=== PATIENT | male | born 1965 | race Caucasian/White ===

== ENCOUNTER 2016-05-08 09:00 | Outpatient (CLI) | payer BC ==
[~2016-05-08] VITALS: Ht 172.7 cm; Wt 114.1 kg
--- NOTE | ~2016-05-08 | HEMODYNAMI ---
PATIENT:ANICETO MOON MEDICAL RECORD: [id number] : 67 LOCATION:[facility] ADMISSION DATE: 05/08/16 Generatedon:05/08/201611:59 Patient name: ANICETO MOON Patient #: [id number] SSN: : 1965 Date of study: 05/08/2016 Page: Of Hemodynamic Procedure Report Patient Data Patient Demographics Procedure consent was obtained First Name: ANICETO Gender: Male Last Name: SARAI : 1965 Middle Initial: SOLEDAD Age: 50 year(s) Patient #: [id number] Race: Additional ID: [id number] Contact details Address: [address] [place] [address] State: [place] City: [place] Zip code: [address] Past Medical History Allergies: No known allergies Admission Admission Data Admission Date: 05/08/2016 Admission Time: 9:00 Height (in.): 66 BSA: 2.23 (m2) Height (cm.): 167.64 BMI: 41.48 (kg/m2) Weight (lbs.): 257 Weight (kg.): 116.57 Lab Results Lab Result Date: 05/08/2016 Lab Result Time: 0:00 Biochemistry Name Units Result Min Max BUN mg/dl 26 --(----)-* 7 18 Creatinine mg/dl 1.2 --(---*)-- 0.6 1.3 CBC Name Units Result Min Max Hemoglobin g/dl 15.5 --(-*--)-- 13.5 17.5 Procedure Procedure Types Cath Procedure Diagnostic Procedure C [facility] w/Coronaries PCI Procedure Coronary Stent Initial Coronary Stent Additional Miscellaneous Procedures Moderate Sedation up to 30 minutes Procedure Description Procedure Date Procedure Date: 05/08/2016 Procedure Start Time: 11:38 Procedure End Time: 11:57 Procedure Staff Name Function Robert Chappell MD Performing Physician Simi Vu RN Nurse Rasta Bowens RT Monitor Wilber Torres RT Scrub Procedure Data Cath Procedure Fluoroscopy Diagnostic fluoroscopy Total fluoroscopy Time: 5.9 time: 5.9 min min Diagnostic fluoroscopy Total fluoroscopy dose: dose: 1108 mGy 1108 mGy Contrast Material Contrast Material Type Amount (ml) Isovue 300 127 Entry Location Entry Primary Successful Side Size Upsize Upsize Entry Closure Succes sful Closure Location (Fr) 1 (Fr) 2 (Fr) Remarks Device Remarks Femoral Right 5 Fr 6 Fr Exoseal artery Short Diagnostic catheters Device Type Used For End Catheter Placement Cordis 5Fr Pigtail LV Angiography Catheter (MP) Cordis 5Fr JL 4.0 Left Coronary Catheter (MP) Angiography Cordis 5Fr 3DRC Catheter Right Coronary (MP) Angiography Procedure Complications No complications Procedure Medications Medication Administration Route Dosage Oxygen NC 2 l/min Heparin Flush Bag added to field 2 bags (1000units/500ml NS) Lidocaine 2% added to field 20 Versed I.V. 1 mg Fentanyl I.V. 50 mcg Versed I.V. 1 mg Fentanyl I.V. 50 mcg Versed I.V. 1 mg Fentanyl I.V. 50 mcg Versed I.V. 1 mg Fentanyl I.V. 50 mcg Heparin Bolus I.V. 4000 units Hemodynamics Rest BSA: 2.23 (m2) HGB: 15.5 (g/dl) O2 Consumption: Estimated: 264.02 (ml/min) O2 Co nsumption indexed: Estimated:118.39 (ml/min/m) Heart Rate: 66 (bpm) Snapshots Pre Cath Intra NCS Post Cath Vital Signs Time Heart Resp SPO2 etCO2 [id number] NIBP (mmHg) Rhythm Pain Sedation Rate (ipm) (%) (mmHg) (mmHg) Status Level (bpm) 11:16:38 67 16 97 0 0 144/78(99) NSR 0 (11) 10(A) , No pain 11:20:54 68 15 99 0 0 125/75(93) NSR 0 (11) 10(A) , No pain 11:25:08 63 16 96 0 0 134/77(92) NSR 0 (11) 10(A) , No pain 11:29:26 56 17 95 0 0 148/75(99) NSR 0 (11) 10(A) , No pain 11:33:52 57 16 94 0 0 127/68(100) NSR 0 (11) 10(A) , No pain 11:38:04 57 16 98 0 0 121/81(96) NSR 0 (11) 10(A) , No pain 11:42:18 60 15 95 0 0 134/70(96) NSR 0 (11) 9(A) , No pain 11:46:30 65 16 95 0 0 138/79(115) NSR 0 (11) 9(A) , No pain 11:50:40 70 16 96 0 0 131/87(103) NSR 0 (11) 9(A) , No pain 11:54:52 79 16 97 0 0 127/88(115) NSR 0 (11) 9(A) , No pain 11:56:36 67 16 98 0 0 135/75(100) NSR 0 (11) 9(A) , No pain Medications Time Medication Route Dose Verified Delivered Reason Notes Effectiveness by by 11:18:52 Oxygen NC 2 Robert Simi Per physician l/min Ta Vu RN 11:19:02 Heparin Flush added 2 Robertniels Chanelrey used for Bag to bags Ta Chappell MD procedure (1000units/500ml field NS) 11:19:10 Lidocaine 2% added 20ml Robert Robert for to vial Ta Chappell MD antiplatelet field therapy 11:31:41 Versed I.V. 1 mg Robert Simi for sedation Ta Vu RN 11:31:49 Fentanyl I.V. 50 Robert Simi for sedation mcg Ta Vu RN 11:33:52 Versed I.V. 1 mg Robert Simi for sedation Ta Vu RN 11:33:55 Fentanyl I.V. 50 Robert Simi for sedation mcg Ta Vu RN 11:36:03 Versed I.V. 1 mg Robert Simi for sedation Ta Vu RN 11:36:06 Fentanyl I.V. 50 Robert Simi for sedation mcg Ta Vu RN 11:39:16 Versed I.V. 1 mg Robert Simi for sedation Ta Vu RN 11:39:22 Fentanyl I.V. 50 Robert Simi for sedation mcg Ta Vu RN 11:49:57 Heparin Bolus I.V. 4000 Robert Simi for dose units Ta Vu RN anticoagulation verified [facility] dr chappell Procedure Log Time Note 10:55:07 Simi Vu RN sent for patient. Start room use. 11:03:08 Time tracking: Regular hours 11:03:13 Plan of Care:Hemodynamics will remain stable., Cardiac rhythm will remain stable., Comfort level will be maintained., Respiratory function will remain adequate., Patient/ family verbilizes understanding of procedure., Procedure tolerated without complication., Recovers from procedure without complications.. 11:10:51 Patient received from Pre/Post Procedure Room to CCL 1 Alert and oriented. Tansferred to table in Supine position. 11:10:52 Warm blankets applied, and marcelino hugger turned on for patient comfort. 11:10:53 Correct patient and procedure confirmed by team. 11:10:54 Signed procedure consent form obtained from patient. 11:10:54 ECG and BP/O2 sat monitors applied to patient. 11:15:32 Vital chart was started 11:15:33 Baseline sample Acquired. 11:15:37 Rhythm: sinus rhythm 11:15:38 Full Disclosure recording started 11:18:52 Oxygen 2 l/min NC was given by Simi Vu RN; Per physician; 11:19:02 Heparin Flush Bag (1000units/500ml NS) 2 bags added to field was given by Robert Chappell MD; used for procedure; 11:19:10 Lidocaine 2% 20ml vial added to field was given by Robert Chappell MD; for antiplatelet therapy; 11:23:20 H&P Date Dictated: 05/06/2016 Within 30 days and on chart., H&P Addendum completed by physician on day of procedure. (MUST COMPLETE FOR ALL OUTPATIENTS). 11:23:21 Pre-procedure instructions explained to patient. 11:23:22 Pre-op teaching completed and patient verbalized understanding. 11:23:26 Family in patients room. 11:23:28 Patient NPO since Midnight. 11:23:35 Patient allergic to No known allergies 11:23:37 Is the patient allergic to Iodine/contrast media? No. 11:25:14 Is patient on blood thinner?Yes 11:25:20 ACC The patient was administered the following blood thiners within the last 24 hours: ACCPlavix 11:25:26 Patient diabetic? Yes. 11:25:28 If diabetic: On Metformin? Yes 11:25:36 If on Metformin: Last Dose? 05/07/2016 11:25:38 ----Pre-sedation anethsthesia assessment.---- 11:26:11 Previous problem with sedation/anesthesia? No ? 11:26:12 Snore? Yes 11:26:14 Sleep apnea? Yes 11:26:15 Deviated septum? No 11:26:17 Opens mouth fully? Yes 11:26:18 Sticks out tongue? Yes 11:26:21 Airway obstruction? No ? 11:26:23 Dentures? No ? 11:26:28 Pre procedure: right dorsailis pedis pulse 1+ Palpable, but thready & weak; easily obliterated 11:26:30 Patient pain scale 0/10 ?. 11:26:35 IV patent on arrival in left antecubital with 0.9% NaCl at 10ml/hr. 11:31:00 Lab Result : BUN 26 mg/dl 11:31:00 Lab Result : Hemoglobin 15.5 g/dl 11:31:00 Lab Result : Creatinine 1.2 mg/dl 11:31:03 Lab results completed and on chart. 11:31:08 Right groin area was prepped with chlora-prep and draped in sterile fashion 11:31:10 Alarms reviewed by R. N. 11:31:10 Sharps counted by scrub and verified by R.N. 11:31:34 --------ALL STOP TIME OUT------ 11:31:34 Final Timeout: patient, procedure, and site verified with staff and physician. All members of the team are in agreement. 11:31:36 Right groin site verified by team. 11:31:41 Versed 1 mg I.V. was given by Simi Vu RN; for sedation; 11:31:42 Physical assessment completed. ASA score P 2 - A patient with mild systemic disease as per Robert Chappell MD. 11:31:47 Sedation plan: IV Moderate Sedation Versed, Fentanyl 11:31:49 Fentanyl 50 mcg I.V. was given by Simi Vu RN; for sedation; 11:31:52 Use device set Femoral Dx 11:31:53 Acist Syringe opened to sterile field. 11:31:53 Bag Decanter opened to sterile field. 11:31:53 Medline Cath Pack opened to sterile field. 11:31:54 Terumo 5Fr Wanchese Sheath opened to sterile field. 11:31:55 St Reza 260cm J .035 wire opened to sterile field. 11:31:56 Acist Hand Control opened to sterile field. 11:31:56 Acist Manifold opened to sterile field. 11:31:57 Diagnostic Infinity 5Fr Multipack catheter opened to sterile field. 11:31:57 Tegaderm 4 x 4 opened to sterile field. 11:33:52 Versed 1 mg I.V. was given by Simi Vu RN; for sedation; 11:33:55 Fentanyl 50 mcg I.V. was given by Simi Vu RN; for sedation; 11:33:55 Patient Height : 66 inches 11:34:00 Patient Weight : 257 lbs 11:34:50 Zero performed for pressure channel P1 11:36:03 Versed 1 mg I.V. was given by Simi Vu RN; for sedation; 11:36:06 Fentanyl 50 mcg I.V. was given by Simi Vu RN; for sedation; 11:37:53 Procedure started. 11:38:21 Local anesthetic to right femoral artery with Lidocaine 2% by Robert Chappell MD.INITIAL ACCESS ONLY 11:38:28 A 5 Fr sheath was inserted into the Right Femoral artery 11:39:16 Versed 1 mg I.V. was given by Simi Vu RN; for sedation; 11:39:22 Fentanyl 50 mcg I.V. was given by Simi Vu RN; for sedation; 11:39:25 A Cordis 5Fr Pigtail Catheter (MP) was advanced over the wire and used for LV Angiography. 11:39:30 LV angiography performed. 11:39:31 LV gram done using KWOK 11:39:35 Injector settings: Ml/sec: 10, Volume: 20, 11:40:32 EF : 60 % 11:40:33 Catheter removed. 11:40:39 A Cordis 5Fr JL 4.0 Catheter (MP) was advanced over the wire and used for Left Coronary Angiography. 11:40:42 LCA angiography performed. 11:41:23 Catheter removed. 11:41:28 A Cordis 5Fr 3DRC Catheter (MP) was advanced over the wire and used for Right Coronary Angiography. 11:41:31 RCA angiography performed. 11:42:18 Catheter removed. 11:42:24 Sheath upsized to a 6 Fr Short. 11:43:34 6 Fr XBLAD 4 guide catheter was inserted over the wire 11:43:45 Terumo 6Fr Wanchese Sheath opened to sterile field. 11:43:45 Cooney Whisper J 300cm 0.014 guide wire opened to sterile field. 11:43:45 HEXIO BasixCompak Inflation Kit opened to sterile field. 11:43:46 Jumpido [place] IVUS Catheter opened to sterile field. 11:43:46 Cordis 6FR XBLAD 4.0 guide catheter opened to sterile field. 11:43:50 WHISPER wire advanced. 11:43:53 FFR/IVUS 11:43:54 IVUS catheter advanced over wire. 11:43:55 IVUS pass to Circ lesion performed. 11:48:05 IVUS catheter removed over wire. 11:48:17 ACC PCI Site: pCirc has 67% stenosis. 11:48:20 ACC Pre-intervention MARISELA Flow is 3. 11:49:40 ACC PCI Site: OM1 has 80% stenosis. 11:49:57 Heparin Bolus 4000 units I.V. was given by Simi Vu RN; for anticoagulation; dose verified [facility] dr chappell 11:51:24 Inflation Number: 1 A Medtronic Resolute 2.25 X 14 stent was prepped and advanced across the 1st Ob Rhonda. The stent was deployed at 15 LUCAS for 0:11 (min:sec). 11:51:47 Inflation number: 2 The stent balloon was then re-inflated across the 1st Ob Rhonda to 13 LUCAS for 0:10 (min:sec). 11:51:59 Stent catheter was removed intact over wire. 11:54:05 Inflation Number: 1 A Medtronic Resolute 3.0 X 9 stent was prepped and advanced across the Prox CX. The stent was deployed at 13 LUCAS for 0:12 (min:sec). 11:54:14 Stent catheter was removed intact over wire. 11:54:14 Wire removed. 11:54:15 Guide catheter removed. 11:54:16 ACC Post-intervention MARISELA Flow is 3. 11:54:22 Contrast amount:Isovue 300 127ml. 11:54:53 Sheath removed intact; hemostasis achieved with Exoseal to the Right Femoral artery. 11:55:01 Cordis 6Fr Exoseal opened to sterile field. 11:55:03 Procedure ended.(Physican Out) 11:56:07 Fluoroscopy time 05.90 minutes. 11:56:14 Flurop Dose total: 1108 11:56:14 Fluoroscopy dose: 1108 mGy 11:56:16 Sharps counted by scrub and verified by R.N. 11:56:17 Insertion/operative site no bleeding no hematoma. 11:56:20 Post-op/insertion site Right Femoral artery dressed using a 4 x 4 and Tegaderm. 11:56:37 Post right femoral artery:stable 11:56:44 Post Procedure Pulses reassessed and unchanged 11:56:46 Post procedure: right dorsailis pedis pulse 1+ Palpable, but thready & weak; easily obliterated. 11:56:49 Post procedure rhythm: sinus rhythm 11:56:51 Post procedure instruction explained to patient.Patient verbalizes understanding. 11:57:09 Procedure type changed to Cath procedure, Diagnostic procedure, LHC, LHC w/Coronaries, PCI procedure, Coronary Stent Initial, Coronary Stent Additional, Miscellaneous Procedures, Moderate Sedation up to 30 minutes 11:57:20 Procedure and supply charges have been captured, reviewed, submitted and are correct. 11:57:47 Procedure Complication : No complications 11:57:50 Vital chart was stopped 11:57:50 See physician's report for complete and final results. 11:57:54 Report given to Pre/Post Procedure Room. 11:57:57 Patient transfered to Pre/Post Procedure Room with Stretcher. 11:57:59 Procedure ended. 11:57:59 Full Disclosure recording stopped 11:58:05 ACC-PCI Only Patient was given prescriptions, or instructed by Robert Chappell MD to start/continue the following medications upon discharge: Plavix 11:58:06 End room use (Document Last) Intervention Summary Intervention Notes Time ActionType Lesion and Equipment Action# Pressure Duration Attributes Used 11:51:24 Place stent [address]st Ob [facility] Medtronic 1 15 00:11 Resolute 2.25 X 14 stent 11:51:47 Reinflate 1st Ob Rhonda Medtronic 2 13 00:10 stent Resolute balloon 2.25 X 14 stent 11:54:05 Place stent Prox CX Medtronic 1 13 00:12 Resolute 3.0 X 9 stent Device Usage Item Name Manufacture Quantity Catalog Hospital Part Current Minimal Lot# / Number Charge Number Stock Stock Serial# Code Acist Acist 1 42067 701313 055927 849519 20 Syringe Medical Systems Inc Bag Microtek 1 2002S 038342 80696 191961 5 Comm[employer]ve [employer] Inc. Medline Cardinal 1 [id number] 005013 17957 153769 5 Cath Pack Health Terumo 5Fr Terumo 1 [id number] 681683 668075 477555 [address] Reza 1 474524 267745 844617 371115 30 260cm J .035 wire Acist Hand Acist 1 91403 598302 001447 210428 5 [employer] Inc Acist Acist 1 51570 866815 458361 898651 5 [employer] Inc Diagnostic Cardinal 1 [id number] 623732 75945 085672 30 Infinity Health 5Fr Multipack catheter Tegaderm 4 3M 1 1626W 272125 340298 935173 5 x 4 Cordis 5Fr Cardinal 1 761777 5 Pigtail Health Catheter (MP) Cordis 5Fr Cardinal 1 189493 5 JL 4.0 Health Catheter (MP) Cordis 5Fr Cardinal 1 912994 5 3DRC Health Catheter (MP) Terumo 6Fr Terumo 1 SGR800 134854 775744 445213 40 Wanchese Sheath Cooney Cooney 1 [id number] 919665 404599 077359 5 Whisper J Vascular 300cm 0.014 guide wire Merit Merit 1 PR9520 141824 373107 785844 15 [employer] Medical Inflation Kit [place] 1 [id number] 638356 431209 239989 8 [place] IVUS Catheter Cordis 6FR Cardinal 1 [id number] 232404 815046 760443 3 XBLAD 4.0 Health guide catheter Medtronic Medtronic 1 [id number] 649528 680752 8 [id number] Resolute 2.25 X 14 stent Medtronic Medtronic 1 [id number] 873447 869933 6 [id number] Resolute 3.0 X 9 stent Cordis 6Fr Cardinal 1 EX600 510161 542914 752064 10 [facility] Health Signature Audit Chrisman Stage Time Signature Unsigned Intra-Procedure 05/08/2016 Rasta Bowens 11:59:35 AM RT(R) Signatures Monitor : Rasta Bowens RT Signature : Date : Time : [place] [address] [place] [address]
[~2016-05-08 09:00] MED LIST: ALEVE220 MG PO; AMBIEN10 MG PO; ATIVAN0.5 MG PO; BAYER CHEWABLE81 MG PO; BYSTOLIC10 MG PO; CELEXA20 MG PO; EFFIENT10 MG PO; GLUCOPHAGE1000 MG PO; GLUCOPHAGE500 MG PO; HYDROCHLOROTHIA25 MG PO; ISOSORBIDE MONO30 M1 PO; LEVEMIR100 U/M1 SQ; NIZORAL 2 % CRE15 GM TOPICAL; PLAVIX75 MG; PLAVIX75 MG PO; PRINZIDE 20-251 TA1 PO; ROBAXIN500 MG PO; TENORMIN100 MG; ULTRAM50 MG PO; WELLBUTRIN SR150 MG PO; ZESTRIL40 MG PO; ZOLOFT100 MG PO; ZYLOPRIM100 MG PO; ZYLOPRIM300 MG PO
[2016-05-08 09:35] VITALS: BP 116/71; Ht 172.7 cm; Wt 114.1 kg
[2016-05-08 10:21] LABS: BASOPHILS 0.4 % (0.0-2.0); EOSINOPHILS 5.5 % (0-7); HEMATOCRIT 44.1 % (42.0-54.0); HEMOGLOBIN 15.5 g/dL (13.5-17.5); IMMATURE GRANULOCYTES 0.2 % (0-5); LYMPHOCYTES 33.9 % (15-50); MCH 30.6 pg (26.0-34.0); MCHC 35.1 g/dL (31.0-37.0); MEAN PLATELET VOLUME 11.7 fL (7.4-10.4); MONOCYTES 8.5 % (2-11); NEUTROPHILS 51.5 % (40-80); PLATELET COUNT 128 10x3/uL (130-400); RBC 5.07 10x6/uL (4.20-6.10); RDW 13.2 % (11.5-14.5); WBC 5.6 10x3/uL (4.8-10.8)
[2016-05-08 10:32] LABS: CALCIUM 9.2 mg/dL (8.5-10.1); CARBON DIOXIDE 29.3 mmol/L (21.0-32.0); CREATININE - SERUM 1.2 mg/dL (0.6-1.3); POTASSIUM - SERUM 4.3 mmol/L (3.5-5.1)
--- NOTE | 2016-05-08 12:25 | NUR ---
RESTING IN BED WITH EYES CLOSED, AT BEDSIDE. 2L NC, NO DISTRESS NOTED. NO C/O CHEST PAIN OR NAUSEA. RIGHT GROIN DRSG CDI, NO BLEEDING OR HEMATOMA NOTED. WILL CONTINUE TO MONITOR.
--- NOTE | 2016-05-08 13:11 | NUR ---
RESTING IN BED WITH EYES CLOSED. VSS. AT BEDSIDE. NO C/O CHEST PAIN OR N/V. RIGHT GROIN DRSG CDI, NO BLEEDING OR HEMATOMA NOTED. WILL CONTINUE TO MONITOR.
--- NOTE | 2016-05-08 13:40 | NUR ---
SANDWICH TRAY SERVED. NO C/O NAUSEA/VOMITING OR CHEST PAIN. VSS. RIGHT GROIN DRSG CDI. NO BLEEDING OR HEMATOMA NOTED.
--- NOTE | 2016-05-08 14:10 | NUR ---
VSS. NO C/O NAUSEA OR CHEST PAIN. NO DISTRESS NOTED. RIGHT GROIN CDI, NO BLEEDING OR HEMATOMA NOTED.
--- NOTE | 2016-05-08 15:13 | NUR ---
RESTING IN BED, AT BEDSIDE. VSS. NO C/O AT THIS TIME. RIGHT GROIN DRSG CDI.
--- NOTE | 2016-05-08 15:42 | NUR ---
LEFT AC PIV D/C'D WITH CATHETER INTACT. PT UP TO SIDE OF BED TO GET DRESSED.
--- NOTE | 2016-05-08 15:47 | NUR ---
UP TO RESTROOM TO VOID.
--- NOTE | 2016-05-08 15:50 | NUR ---
DISCHARGE INSTRUCTIONS GIVEN, PT AND FAMILY VERBALIZED UNDERSTANDING.
--- NOTE | 2016-05-08 16:00 | NUR ---
TAKEN OUT VIA WHEELCHAIR BY MEMBER OF CATH CARE TEAM. LEFT FACILITY WITH FAMILY MEMBER AND ALL PERSONAL BELONGINGS.
--- NOTE | 2016-05-20 10:08 | OP ---
PATIENT NAME: ANICETO MOON MEDICAL RECORD: [id number] :67 LOCATION:D.CAT ADMISSION DATE: SURGEON: JR ARMSTRONG MD DATE OF OPERATION: 05/08/2016 PROCEDURES: 1. PTCA stent left circumflex. 2. PTCA stent left circumflex first obtuse marginal. 3. Intravascular ultrasound. 4. Left heart catheterization. 5. Selective coronary angiography. 6. Left ventriculogram. INDICATIONS: Angina and coronary artery disease. DESCRIPTION OF PROCEDURE: After informed consent was obtained and after detailed explanation of risks, benefits as well as alternative therapies, the patient elected to proceed with angiogram and angioplasty. The right femoral area was prepped and draped in normal sterile fashion. The right femoral artery was cannulated via modified Seldinger technique with placement of a 6-[place] sheath. All catheters exchanged through this sheath. FINDINGS: Left ventriculogram was performed in standard 30-degree KWOK view, reveals good cardiac wall motion throughout all segments. Overall ejection fraction estimated 60%. SELECTIVE CORONARY ANGIOGRAPHY: 1. Left main showed no significant angiographic disease. 2. Left anterior descending has previously placed stents in the LAD diagonal. These are widely patent. The LAD has only mild irregularities elsewise. 3. Left circumflex has 67% stenosis at the ostium confirmed by intravascular ultrasound. The first obtuse marginal was 80% stenosis. 4. Right coronary has moderate irregularities, but no flow-limiting stenosis. PTCA STENT OF THE LEFT CIRCUMFLEX AND FIRST OBTUSE MARGINAL: The first obtuse marginal addressed with a 2.25 x 14 mm Resolute and circumflex with a 3.0 x 9 mm Resolute. Result was 0% residual stenosis. OVERALL IMPRESSION: Successful percutaneous transluminal coronary angioplasty stent of the left circumflex and first obtuse marginal going from 80% initial stenosis to 0% residual. TRANSINT:[id number] Voice Confirmation ID: [id number] DOCUMENT ID: [id number] JR ARMSTRONG MD at 1008 CC: [id number] DICTATION DATE: 05/08/16 1159 HAT FORMING MACHINE OPERATOR: 05/08/16 1747 DEP CLI 05/08/16 [place] [address]
== END 2016-05-08 16:00 | disposition home or self-care (01) ==
LOC: D.CATH 09:00
PROVIDERS: Internal Medicine Interventional Cardiology
DX: I25.119 Atherosclerotic heart disease of native coronary artery with unspecified angina pectoris (principal)

== ENCOUNTER → 2016-06-18 13:53 | Outpatient (CLI) | payer BC ==
[2016-05-08 09:35] VITALS: BMI 38.2
== END | disposition home or self-care (01) ==
LOC: D.MRI 13:53
DX: M25.522 Pain in left elbow (principal)

== ENCOUNTER → 2017-08-19 07:01 | Outpatient (CLI) | payer BC ==
[~2017-08-19] VITALS: Ht 170.2 cm; Wt 93.6 kg
--- NOTE | ~2017-08-19 | OP ---
PATIENT NAME: ANICETO MOON MEDICAL RECORD: [id number] :67 LOCATION:D.CAT ADMISSION DATE: SURGEON: JR ARMSTRONG MD DATE OF OPERATION: 08/19/2017 PROCEDURES: 1. Laser atherectomy LAD. 2. PTCA stent LAD. 3. Left heart catheterization. 4. Selective coronary angiography. 5. Left ventriculogram. INDICATION: Angina and coronary artery disease. PROCEDURE IN DETAIL: After informed consent was obtained and after a detailed explanation of risks, benefits as well as alternative therapies, the patient elected to proceed with angiogram and angioplasty. The right femoral area was prepped and draped in normal sterile fashion. The right femoral artery was cannulated via modified Seldinger technique with placement of 6-[place] sheath. All catheters exchanged through this sheath. FINDINGS: Left ventriculogram performed in a standard 30-degree KWOK view reveals good cardiac wall motion throughout all segments. Overall ejection fraction estimated at 55% to 60%. SELECTIVE CORONARY ANGIOGRAPHY: 1. Left main is with no significant angiographic disease. 2. Left anterior descending has 90% stenosis proximally. 3. The left circumflex has mild irregularities, but no flow-limiting stenosis. 4. Right coronary artery has moderate irregularities, but no flow-limiting stenosis. PTCA STENT, LASER ATHERECTOMY OF THE LAD: Laser atherectomy was performed at 40-40, multiple passes were made. Stenting was undertaken with a 3.0 x 15 mm Chris stent. Result was 0% residual stenosis. OVERALL IMPRESSION: Successful percutaneous transluminal coronary angioplasty stent, laser atherectomy of the left anterior descending going from 90% initial stenosis to 0% residual. TRANSINT:[id number] Voice Confirmation ID: [id number] DOCUMENT ID: [id number] JR ARMSTRONG MD at 1705 CC: [id number] DICTATION DATE: 08/19/17 0926 COMMUNICATIONS EDITOR: 08/19/17 1325 [facility] CLI 08/19/17 [place] [id number]
--- NOTE | ~2017-08-19 | HEMODYNAMI ---
PATIENT:ANICETO MOON MEDICAL RECORD: [id number] : 67 LOCATION:[facility] ADMISSION DATE: 08/19/17 Generatedon:08/19/20179:27 Patient name: ANICETO MOON Patient #: [id number] SSN: : 1965 Date of study: 08/19/2017 Page: Of Hemodynamic Procedure Report Patient Data Patient Demographics Procedure consent was obtained First Name: ANICETO Gender: Male Last Name: SARAI : 1965 Middle Initial: SOLEDAD Age: 51 year(s) Patient #: [id number] Race: Additional ID: [id number] Contact details Address: [address] [place] [address] State: [place] City: [place] Zip code: [address] Past Medical History Allergies: No known allergies Admission Admission Data Admission Date: 08/19/2017 Admission Time: 7:01 Admit Source: Other Procedure Procedure Types Cath Procedure Diagnostic Procedure LHC LHC w/Coronaries Sedation Charges Moderate Sedation up to 30 minutes PCI Procedure Coronary Atherectomy Atherectomy w/Stent Coronary Initial Procedure Description Procedure Date Procedure Date: 08/19/2017 Procedure Start Time: 8:44 Procedure End Time: 9:25 Procedure Staff Name Function Robert Chappell MD Performing Physician Morris Walker RT Monitor Marleny Pa RT Scrub Richard Lott RN Nurse Elie Kenney RN Tube Washer Procedure Data Cath Procedure Fluoroscopy Diagnostic fluoroscopy Total fluoroscopy Time: 8.5 time: 8.5 min min Diagnostic fluoroscopy Total fluoroscopy dose: dose: 1484 mGy 1484 mGy Contrast Material Contrast Material Type Amount (ml) Isovue 300 136 Entry Location Entry Primary Successful Side Size Upsize Upsize Entry Closure Succes sful Closure Location (Fr) 1 (Fr) 2 (Fr) Remarks Device Remarks Femoral Right 5 Fr 6 Fr Exoseal artery Short Estimated blood loss: 10 ml Diagnostic catheters Device Type Used For End Catheter Placement MULTIPACK Pigtail 5 Fr Procedure catheter MULTIPACK JL 4.0 5Fr Procedure catheter MULTIPACK 3DRC 5Fr Procedure catheter Procedure Complications No complications Procedure Medications Medication Administration Route Dosage 0.9% NaCl I.V. 100 ml/hr Oxygen etCO2 Nasal cannula 2 l/min Heparin Flush Bag added to field 2 bags (1000units/500ml NS) Lidocaine 2% added to field 20 Versed I.V. 2 mg Fentanyl I.V. 100 mcg Versed I.V. 2 mg Fentanyl I.V. 100 mcg Versed I.V. 2 mg Heparin Bolus I.V. 4000 units Versed I.V. 1 mg Hemodynamics Rest Heart Rate: 65 (bpm) Snapshots Pre Cath Intra NCS Post Cath Vital Signs Time Heart Resp SPO2 etCO2 NIBP (mmHg) Rhythm Pain Sedation Rate (ipm) (%) (mmHg) Status Level (bpm) 8:15:35 68 14 99 122/79(103) NSR 0 (11) 10(A) , No pain 8:20:22 61 16 100 38.2 115/68(86) NSR 0 (11) 10(A) , No pain 8:25:07 60 14 99 41.3 114/67(88) NSR 0 (11) 10(A) , No pain 8:29:53 60 14 98 40.5 110/61(82) NSR 0 (11) 10(A) , No pain 8:34:38 61 19 100 38.3 108/59(79) NSR 0 (11) 10(A) , No pain 8:39:21 63 19 100 43.5 110/72(84) NSR 0 (11) 10(A) , No pain 8:44:03 71 19 100 40.5 119/69(93) NSR 0 (11) 10(A) , No pain 8:48:48 72 15 100 42.7 115/54(81) NSR 0 (11) 9(A) , No pain 8:53:33 69 16 98 39.7 109/71(93) NSR 0 (11) 9(A) , No pain 8:58:15 67 17 97 30 109/71(97) NSR 0 (11) 9(A) , No pain 9:03:00 75 18 100 45 109/69(88) NSR 0 (11) 10(A) , No pain 9:07:45 82 11 99 45.7 113/69(86) NSR 0 (11) 10(A) , No pain 9:12:30 86 11 100 43.5 112/74(94) NSR 0 (11) 10(A) , No pain 9:17:17 74 10 100 39 111/65(83) NSR 0 (11) 10(A) , No pain 9:22:01 81 10 100 24 113/70(87) NSR 0 (11) 10(A) , No pain Medications Time Medication Route Dose Verified Delivered Reason Notes Effectiveness by by 8:19:10 0.9% NaCl I.V. 100 Richard Richard Per physician ml/hr Oren Lott RN RN 8:19:28 Oxygen etCO2 2 Richard Richard Per physician Nasal l/min Oren Lott cannula RN RN 8:19:47 Heparin Flush added 2 Richard Richard used for Bag to bags Oren Lott procedure (1000units/500ml field RN RN NS) 8:20:08 Lidocaine 2% added 20ml Richard Richard for local to vial Oren Lott anesthetic field RN RN 8:43:34 Versed I.V. 2 mg Richard Richard for sedation Oren Lott RN RN 8:43:43 Fentanyl I.V. 100 Richard Richard for sedation mcg Oren Lott RN RN 8:45:29 Versed I.V. 2 mg Richard Richard for sedation Oren Lott RN RN 8:45:34 Fentanyl I.V. 100 Richard Richard for sedation mcg Oren Lott RN RN 8:48:06 Versed I.V. 2 mg Richard Richard for sedation Oren Lott RN RN 9:00:37 Heparin Bolus I.V. 4000 Richard Richard for units Oren Lott anticoagulation RN RN 9:16:38 Versed I.V. 1 mg Richard Richard for sedation Oren Lott RN spike machine heater Log Time Note 8:01:24 Informed consent obtained and on chart 8:01:26 Admit Source: Other 8:01:41 Diagnostic Cath status Elective 8:01:45 Time tracking: Regular hours (M-F 7:00 - 5:00) 8:01:55 Plan of Care:Hemodynamics will remain stable., Cardiac rhythm will remain stable., Comfort level will be maintained., Respiratory function will remain adequate., Patient/ family verbilizes understanding of procedure., Procedure tolerated without complication., Recovers from procedure without complications.. 8:05:36 H&P Date Dictated: 08/14/2017 Within 30 days and on chart., H&P Addendum completed by physician on day of procedure. (MUST COMPLETE FOR ALL OUTPATIENTS). 8:06:20 Elie Kenney RN sent for patient. Start room use. 8:08:47 Patient received from Pre/Post Procedure Room to CCL 1 Alert and oriented. Tansferred to table in Supine position. 8:08:48 Warm blankets applied, and marcelino hugger turned on for patient comfort. 8:08:49 Correct patient and procedure confirmed by team. 8:08:51 ECG and BP/O2 sat monitors applied to patient. 8:14:36 Vital chart was started 8:14:39 Rhythm: sinus rhythm 8:14:41 Full Disclosure recording started 8:14:42 Pre-procedure instructions explained to patient. 8:14:42 Pre-op teaching completed and patient verbalized understanding. 8:14:47 Family in waiting room. 8:14:49 Patient NPO since Midnight. 8:14:58 Patient allergic to No known allergies 8:15:02 Is the patient allergic to Iodine/contrast media? No. 8:15:49 Patient diabetic? Yes. 8:15:50 If diabetic: On Metformin? No 8:15:53 Previous problem with sedation/anesthesia? No ? 8:15:54 Snore? Yes 8:15:59 Sleep apnea? No 8:16:01 Deviated septum? No 8:16:02 Opens mouth fully? Yes 8:16:02 Sticks out tongue? Yes 8:16:05 Airway obstruction? No ? 8:16:06 Dentures? No ? 8:16:09 Pre procedure: right dorsailis pedis pulse 2+ Normal; easily identifiable; not easily obliterated 8:16:14 Patient pain scale 0/10 ?. 8:16:21 IV patent on arrival in left antecubital with 0.9% NaCl at [facility]. 8:16:24 Lab results completed and on chart. 8:16:27 Right groin area was prepped with chlora-prep and draped in sterile fashion 8:16:28 Alarms reviewed by R. N. 8:16:28 Sharps counted by scrub and verified by R.N. 8:16:33 Use device set Femoral Dx 8:16:37 ACIST Syringe (25891) opened to sterile field. 8:16:37 Bag Decanter (2002S) opened to sterile field. 8:16:38 Medline Cath Pack ([id number]) opened to sterile field. 8:16:38 DIAGNOSTIC WIRE .035 260cm J wire (945727) opened to sterile field. 8:16:39 ACIST Hand Control (11321) opened to sterile field. 8:16:39 ACIST Manifold (24639) opened to sterile field. 8:16:40 DIAGNOSTIC Multipack 5Fr catheter set ([id number]) opened to sterile field. 8:16:41 Tegaderm 4 x 4 (1626W) opened to sterile field. 8:16:42 PERCUTANEOUS ENTRY 19GA needle opened to sterile field. 8:16:43 SHEATH Prelude 5Fr 0.035 (GCM-5E-52-035) opened to sterile field. 8:17:38 Baseline sample Acquired. 8:19:10 0.9% NaCl 100 ml/hr I.V. was administered by Richard Lott RN; Per physician; 8:19:28 Oxygen 2 l/min etCO2 Nasal cannula was administered by Richard Lott RN; Per physician; 8:19:47 Heparin Flush Bag (1000units/500ml NS) 2 bags added to field was administered by Richard Lott RN; used for procedure; 8:20:08 Lidocaine 2% 20ml vial added to field was administered by Richard Lott RN; for local anesthetic; 8:23:06 Physician paged 8:24:25 Zero performed for pressure channel P1 8:42:22 Physician arrived 8:42:22 --------ALL STOP TIME OUT------ 8:42:23 Final Timeout: patient, procedure, and site verified with staff and physician. All members of the team are in agreement. 8:42:25 Right groin site verified by team. 8:42:27 Physical assessment completed. ASA score P 2 - A patient with mild systemic disease as per Robert Chappell MD. 8:42:30 Sedation plan: IV Moderate Sedation Medication:Versed, Fentanyl 8:43:34 Versed 2 mg I.V. was administered by Richard Lorigan RN; for sedation; 8:43:43 Fentanyl 100 mcg I.V. was administered by Richard Lott RN; for sedation; 8:44:19 Procedure started. 8:44:21 Local anesthetic to right femoral artery with Lidocaine 2% by Robert Chappell MD.INITIAL ACCESS ONLY 8:45:29 Versed 2 mg I.V. was administered by Richard Lott RN; for sedation; 8:45:34 Fentanyl 100 mcg I.V. was administered by Richard Lott RN; for sedation; 8:47:06 A 5 Fr sheath was inserted into the Right Femoral artery 8:48:04 A MULTIPACK Pigtail 5 Fr catheter was advanced over the wire and used for Procedure. 8:48:06 Versed 2 mg I.V. was administered by Richard Lott RN; for sedation; 8:48:44 LV gram done using KWOK 8:48:48 Injector settings: Ml/sec: 10, Volume: 20, 8:49:05 EF : 50 % 8:49:11 Catheter exchanged over wire. 8:49:20 A MULTIPACK JL 4.0 5Fr catheter was advanced over the wire and used for Procedure. 8:50:03 LCA angiography performed. 8:54:19 Catheter exchanged over wire. 8:54:23 A MULTIPACK 3DRC 5Fr catheter was advanced over the wire and used for Procedure. 8:54:25 RCA angiography performed. 8:54:26 Catheter removed. 8:54:36 SHEATH Prelude 6Fr 0.035 (OZZ-2X-99-035) opened to sterile field. 8:55:27 CHOICE PT Extra Support 182cm wire ([id number]) opened to sterile field. 8:55:28 GUIDE 6FR EBU 3.5 catheter ([id number]) opened to sterile field. 8:55:39 LASER ELCA 0.9 Rx atherectomy catheter ([id number]) opened to sterile field. 8:55:47 Sheath upsized to a 6 Fr Short. 9:00:13 6 Fr ebu 3.5 guide catheter was inserted over the wire 9:00:21 choice pt es wire advanced. 9:00:37 Heparin Bolus 4000 units I.V. was administered by Richard Lott RN; for anticoagulation; 9:01:24 Wire advanced across lesion. 9:02:55 Laser catherter advanced and removed, unable to cross lesion. 9:03:47 Inflate balloon Inflation number: 1 A EUPHORA 2.5 x 15 Balloon ([id number]) was prepped and advanced across the Prox LAD, then inflated to 17 LUCAS for 0:10 (min:sec). 9:04:03 Inflation number: 2 The EUPHORA 2.5 x 15 Balloon ([id number]) was reinflated across the Prox LAD, to 19 LUCAS for 0:10 (min:sec). 9:04:12 Balloon removed over the wire. 9:05:23 Laser catherter advanced and removed, unable to cross lesion. 9:06:20 Inflation number: 3 The EUPHORA 2.5 x 15 Balloon ([id number]) was reinflated across the Prox LAD, to 19 LUCAS for 0:10 (min:sec). 9:06:38 Inflation number: 4 The EUPHORA 2.5 x 15 Balloon ([id number]) was reinflated across the Prox LAD, to 19 LUCAS for 0:10 (min:sec). 9:06:56 Balloon removed over the wire. 9:07:16 laser catheter advanced over the wire. 9:08:01 Laser pass to pLAD with Fluence of 40 and Rate of 40. 9:08:09 Laser pass to pLAD with Fluence of 40 and Rate of 40. 9:08:23 Laser pass to pLAD with Fluence of 40 and Rate of 40. 9:09:46 Laser pass to pLAD with Fluence of 40 and Rate of 40. 9:10:13 Laser pass to pLAD with Fluence of 40 and Rate of 40. 9:10:30 Laser catheter removed. 9:13:33 The KIRILL RX 3.0 x 15 stent ([id number]) was advanced then removed because of failure to cross lesion 9:14:18 Inflation number: 5 The EUPHORA 2.5 x 15 Balloon ([id number]) was reinflated across the Prox LAD, to 21 LUCAS for 0:10 (min:sec). 9:14:27 Laser total pulses delivered: 1351 9:14:34 Laser total treatment time: 0 minutes 32 seconds 9:14:39 Balloon removed over the wire. 9:15:47 The KIRILL RX 3.0 x 15 stent ([id number]) was advanced then removed because of failure to cross lesion 9:16:04 CHOICE PT Extra Support 182cm wire ([id number]) opened to sterile field. 9:16:38 Versed 1 mg I.V. was administered by Richard Lott RN; for sedation; 9:16:44 choice pt es wire advanced as patrica wire. 9:17:03 Wire advanced across lesion. 9:17:43 Inflate balloon Inflation number: 6 A EUPHORA 3.0 x 15 Balloon ([id number]) was prepped and advanced across the Prox LAD, then inflated to 13 LUCAS for 0:10 (min:sec). 9:18:20 Balloon removed over the wire. 9:19:23 patrica wire removed. 9:19:37 Place stent Inflation Number: 7 A KIRILL RX 3.0 x 15 stent ([id number]) was prepped and advanced across the Prox LAD. The stent was deployed at 15 LUCAS for 0:10 (min:sec). 9:19:49 Inflation number: 8 The stent balloon was then re-inflated across the Prox LAD to 13 LUCAS for 0:10 (min:sec). 9:20:10 Stent catheter was removed intact over wire. 9:20:11 Wire removed. 9:20:11 Guide catheter removed. 9:20:17 EXOSEAL 6Fr (EX600) opened to sterile field. 9:20:24 Sheath removed intact; hemostasis achieved with Exoseal to the Right Femoral artery. 9:20:25 Procedure ended.(Physican Out) 9:20:57 Fluoroscopy time 08.50 minutes. 9:22:38 Fluoroscopy dose: 1484 mGy 9:22:38 Flurop Dose total: 1484 9:22:42 Contrast amount:Isovue 300 136ml. 9:22:43 Sharps counted by scrub and verified by R.N. 9:22:47 Insertion/operative site no bleeding no hematoma. 9:22:50 Post-op/insertion site Right Femoral artery dressed using a 4 x 4 and Tegaderm. 9:22:53 Post right femoral artery:stable, soft, clean and dry 9:22:55 Post Procedure Pulses reassessed and unchanged 9:22:59 Post-procedure physical assessment completed. ASA score P 2 - A patient with mild systemic disease as per Robert Chappell MD. 9:23:02 Post procedure rhythm: unchanged. 9:23:05 Estimated blood loss: 10 ml 9:23:07 Post procedure instruction explained to patient.Patient verbalizes understanding. 9:23:07 Patient needs reinforcement of post procedure teaching. 9:23:24 Procedure type changed to Cath procedure, Diagnostic procedure, LHC, LHC w/Coronaries, Sedation Charges, Moderate Sedation up to 30 minutes, PCI procedure, Coronary Atherectomy, Atherectomy w/Stent Coronary Initial 9:25:27 Procedure and supply charges have been captured, reviewed, submitted and are correct. 9:25:30 Procedure Complication : No complications 9:25:32 Vital chart was stopped 9:25:35 See physician's report for complete and final results. 9:25:36 Report given to Pre/Post Procedure Room. 9:25:38 Patient transfered to Pre/Post Procedure Room with Stretcher. 9:25:40 Procedure ended. 9:25:40 Full Disclosure recording stopped 9:25:43 End room use (Document Last) Intervention Summary Intervention Notes Time ActionType Lesion and Equipment Used Action# Pressure Duration Attributes 9:03:47 Inflate Prox LAD EUPHORA 2.5 x 1 17 00:10 balloon 15 Balloon ([id number]) 9:04:03 Reinflate Prox LAD EUPHORA 2.5 x 2 19 00:10 balloon 15 Balloon ([id number]) 9:06:20 Reinflate Prox LAD EUPHORA 2.5 x 3 19 00:10 balloon 15 Balloon ([id number]) 9:06:38 Reinflate Prox LAD EUPHORA 2.5 x 4 19 00:10 balloon 15 Balloon ([id number]) 9:13:33 Discard KIRILL RX 3.0 x Stent 15 stent ([id number]) 9:14:18 Reinflate Prox LAD EUPHORA 2.5 x 5 21 00:10 balloon 15 Balloon ([id number]) 9:15:47 Discard KIRILL RX 3.0 x Stent 15 stent ([id number]) 9:17:43 Inflate Prox LAD EUPHORA 3.0 x 6 13 00:10 balloon 15 Balloon ([id number]) 9:19:37 Place stent Prox LAD KIRILL RX 3.0 x 7 15 00:10 15 stent ([id number]) 9:19:49 Reinflate Prox LAD KIRILL RX 3.0 x 8 13 00:10 stent 15 stent balloon ([id number]) Device Usage Item Name Manufacture Quantity Catalog Number Hospital Part Current Minimal Lot# / Charge Number Stock Stock Serial# Code ACIST Syringe Acist 1 26259 689620 493541 037144 20 (23011) Medical Systems Inc Bag Decanter Microtek 1 2001S 636988 36205 690853 5 () Medical Inc. Medline Cath Cardinal 1 [id number] 207250 99819 557666 5 Pack Health ([id number]) DIAGNOSTIC WIRE St Reza 1 922661 934476 966347 901475 30 .035 260cm J wire (626543) ACIST Hand Acist 1 99074 075166 114808 215814 5 Control (31123) Medical Systems Inc ACIST Manifold Acist 1 28707 359383 522083 607638 5 (82049) Medical Systems [employer]There DIAGNOSTIC Cardinal 1 GE0207 558043 38729 561907 30 Multipack 5Fr Health catheter set (LJ3373) Tegaderm 4 x 4 3M 1 1626W 014403 353447 121960 5 (1626W) PERCUTANEOUS Cook Medical 1 X17872 505957 612674 5 ENTRY 19GA needle SHEATH Prelude Merit 1 TLQ-0I-52-035 734316 901316 959511 5 5Fr 0.035 Medical (GYA-7H-90-035) MULTIPACK Cardinal 1 757223 5 Pigtail 5 Fr Health catheter MULTIPACK JL Cardinal 1 102821 5 4.0 5Fr Health catheter MULTIPACK 3DRC Cardinal 1 690394 5 5Fr catheter Health SHEATH Prelude Merit 1 MBN-0V-69-35 671418 7104603 901318 5 6Fr 0.035 Medical (XBS-4E-03-035) CHOICE PT Extra Lincoln 2 [id number] 660251 446359 694670 5 Support 182cm Scientific wire ([id number]) GUIDE 6FR EBU Medtronic 1 [id number] 641696 86306 432776 3 3.5 catheter ([id number]) LASER ELCA 0.9 Astrid 1 110-004 225293 127144 069343 5 Rx atherectomy Healthcare catheter (339969) (509969) EUPHORA 2.5 x Medtronic 1 [id number] 503797 156080 199517 5 [id number] 15 Balloon ([id number]) KIRILL RX 3.0 x Medtronic 1 [id number] 760646 4485535 583668 5 [id number] 15 stent ([id number]) EUPHORA 3.0 x Medtronic 1 [id number] 851834 276100 585110 5 [id number] 15 Balloon ([id number]) EXOSEAL 6Fr Cardinal 1 EX600 795173 915753 932245 10 (EX600) Health Signature Audit [place] Stage Time Signature Unsigned Intra-Procedure 08/19/2017 Morris Walker 9:27:19 AM RT(R) Signatures Monitor : Morris Walker RT Signature : Date : Time : [place] [address] [facility] [address]
[~2017-08-19 07:01] MED LIST changes: +PROZAC10 MG PO
[2017-08-19 07:23] VITALS: BP 117/75; Ht 170.2 cm; Wt 93.6 kg
[2017-08-19 07:33] LABS: BASOPHILS 0.4 % (0-2); EOSINOPHILS 7.4 % (0-7); HEMATOCRIT 43.9 % (42.0-54.0); HEMOGLOBIN 15.7 g/dL (13.5-17.5); IMMATURE GRANULOCYTES 0.2 % (0-5); MCH 31.4 pg (26.0-34.0); MCHC 35.8 g/dL (31.0-37.0); MCV 87.8 fL (80.0-100.0); MEAN PLATELET VOLUME 11.6 fL (7.4-10.4); MONOCYTES 8.2 % (2-11); NEUTROPHILS 45.8 % (40-80); PLATELET COUNT 136 10x3/uL (130-400); RDW 13.7 % (11.5-14.5); WBC 5.4 10x3/uL (4.8-10.8)
[2017-08-19 07:53] LABS: CALC OSMOLALITY 277 mosm/kg (275-300); CALCIUM 9.3 mg/dL (8.5-10.1); CARBON DIOXIDE 30.6 mmol/L (21.0-32.0); CHLORIDE - SERUM 101 mmol/L (98-107); CREATININE - SERUM 1.1 mg/dL (0.6-1.3); POTASSIUM - SERUM 3.2 mmol/L (3.5-5.1); SODIUM 138 mmol/L (136-145); UREA NITROGEN 16 mg/dL (7-18); eGFR NON AFRICAN AMERICAN 75 mL/min (90-120)
[2017-08-19 07:55] LABS: GLUCOSE 111 mg/dL (74-106)
== END | disposition home or self-care (01) ==
LOC: D.CATH 07:01
PROVIDERS: Internal Medicine Interventional Cardiology
DX: I25.119 Atherosclerotic heart disease of native coronary artery with unspecified angina pectoris (principal); Z01.812 Encounter for preprocedural laboratory examination

== ENCOUNTER 2018-05-13 07:29 | Outpatient (CLI) | payer BC ==
[~2018-05-13] VITALS: Ht 170.2 cm; Wt 92.3 kg
--- NOTE | ~2018-05-13 | HEMODYNAMI ---
PATIENT:ANICETO MOON MEDICAL RECORD: [id number] : 67 LOCATION:[facility] ADMISSION DATE: 05/13/18 Generatedon:05/13/201810:03 Patient name: ANICETO MOON Patient #: [id number] : 1965 Date of study: 05/13/2018 Page: Of Hemodynamic Procedure Report Patient Data Patient Demographics Procedure consent was obtained First Name: ANICETO Gender: Male Last Name: SARAI : 1965 Middle Initial: EDCHIO Age: 52 year(s) Patient #: [id number] Race: SSN: [id number] Additional ID: [id number] Contact details Address: [address] [place] [address] State: [place] City: [place] Zip code: [address] Past Medical History Allergies: No known allergies Admission Admission Data Admission Date: 05/13/2018 Admission Time: 7:29 Arrival Date: 05/13/2018 Arrival Time: 9:30 Admit Source: Other Insurance Payor: Private health insurance Height (in.): 67 BSA: 2.04 (m2) Height (cm.): 170.18 BMI: 31.86 (kg/m2) Weight (lbs.): 203.42 Weight (kg.): 92.27 Lab Results Lab Result Date: 05/13/2018 Lab Result Time: 0:00 Biochemistry Name Units Result Min Max BUN mg/dl 18 --(---*)-- 7 18 Creatinine mg/dl 1.2 --(---*)-- 0.6 1.3 CBC Name Units Result Min Max Hemoglobin g/dl 16.4 --(--*-)-- 13.5 17.5 Procedure Procedure Types Cath Procedure Diagnostic Procedure LHC LHC w/Coronaries Procedure Description Procedure Date Procedure Date: 05/13/2018 Procedure Start Time: 9:53 Procedure End Time: 9:58 Procedure Staff Name Function Robert Chappell MD Performing Physician Roger Bowens RT Monitor Melonie Mariee RT Scrub Kenzie Mckeon RN Nurse Procedure Data Cath Procedure Fluoroscopy Diagnostic fluoroscopy Total fluoroscopy Time: 0.8 time: 0.8 min min Diagnostic fluoroscopy Total fluoroscopy dose: 503 dose: 503 mGy mGy Contrast Material Contrast Material Type Amount (ml) Isovue 300 57 Entry Location Entry Primary Successful Side Size Upsize Upsize Entry Closure Succes sful Closure Location (Fr) 1 (Fr) 2 (Fr) Remarks Device Remarks Femoral Right 5 Fr Exoseal artery Diagnostic catheters Device Type Used For End Catheter Placement MULTIPACK Pigtail 5 Fr LV Angiography catheter MULTIPACK JL 4.0 5Fr Left Coronary catheter Angiography MULTIPACK 3DRC 5Fr Right Coronary catheter Angiography Procedure Complications No complications Procedure Medications Medication Administration Route Dosage 0.9% NaCl I.V. 100 ml/hr Oxygen etCO2 Nasal cannula 2 l/min Lidocaine 2% added to field 20 Heparin Flush Bag added to field 2 bags (1000units/500ml NS) Versed I.V. 2 mg Fentanyl I.V. 100 mcg Versed I.V. 2 mg Fentanyl I.V. 100 mcg Versed I.V. 2 mg Versed I.V. 2 mg Hemodynamics Rest BSA: 2.04 (m2) HGB: 16.4 (g/dl) O2 Consumption: Estimated: 247.47 (ml/min) O2 Co nsumption indexed: Estimated:121.31 (ml/min/m) Heart Rate: 75 (bpm) Snapshots Pre Cath Intra NCS Post Cath Vital Signs Time Heart Resp SPO2 etCO2 NIBP (mmHg) Rhythm Pain Sedation Rate (ipm) (%) (mmHg) Status Level (bpm) 9:12:26 82 18 100 29.7 125/80(100) NSR 0 (11) 10(A) , No pain 9:16:44 77 16 100 33.5 120/80(99) NSR 0 (11) 10(A) , No pain 9:20:58 66 12 100 39.6 106/77(88) NSR 0 (11) 10(A) , No pain 9:25:14 69 11 100 44.2 110/63(96) NSR 0 (11) 10(A) , No pain 9:29:28 68 11 98 46.4 113/56(89) NSR 0 (11) 10(A) , No pain 9:33:48 70 11 99 44.9 110/61(76) NSR 0 (11) 10(A) , No pain 9:37:58 67 14 90 41.9 106/68(84) NSR 0 (11) 10(A) , No pain 9:42:10 70 13 97 40.4 108/65(81) NSR 0 (11) 10(A) , No pain 9:46:24 70 13 98 42.7 118/65(84) NSR 0 (11) 10(A) , No pain 9:50:42 79 8 99 40.4 96/62(77) NSR 0 (11) 10(A) , No pain 9:54:52 73 14 95 38.1 111/68(88) NSR 0 (11) 9(A) , No pain 9:59:06 75 9 98 38 107/75(84) NSR 0 (11) 10(A) , No pain Medications Time Medication Route Dose Verified Delivered Reason Notes Effe ctiveness by by 9:11:30 0.9% NaCl I.V. 100 Robert Kenzie used for ml/hr Ta Mckeon minilab operator 9:11:36 Oxygen etCO2 2 Robert Kenzie used for Nasal l/min Ta Mckeon procedure cannula RN 9:11:43 Lidocaine 2% added 20ml Robert Robert for local to vial Ta Chappell MD anesthetic field 9:11:46 Heparin Flush added 2 Robert Robert used for Bag to bags Ta Chappell MD procedure (1000units/500ml field NS) 9:47:51 Versed I.V. 2 mg Robert Kenzie for Ta Mckeon sedation RN 9:47:57 Fentanyl I.V. 100 Robert Kenzie for mcg Ta Mckeon sedation RN 9:51:14 Fentanyl I.V. 100 Robert Kenzie for mcg Ta Mckeon sedation RN 9:51:51 Versed I.V. 2 mg Robert Kenzie for Ta Mckeon sedation RN 9:54:20 Versed I.V. 2 mg Robert Kenzie for Ta Mckeon sedation RN 9:57:39 Versed I.V. 2 mg Robert Kenzie for Ta Mckeon sedation conductor symphonic orchestra Log Time Note 9:00:21 Kenzie Mckeon RN sent for patient. Start room use. 9:04:45 Informed consent obtained and on chart 9:04:48 Diagnostic Cath Status : Elective 9::43 Lab Result : Creatinine 1.2 mg/dl 9::43 Lab Result : Hemoglobin 16.4 g/dl 9::43 Lab Result : BUN 18 mg/dl 9:07:05 Admit Source: Other 9:07:12 Patient Height : 67 inches 9:07:21 Patient Weight : 203.42 lbs 9:07:41 Insurance Payor : Private health insurance 9:07:47 Arrival Date: 05/13/2018 9:30:00 AM 9:08:27 Time tracking: Regular hours (M-F 7:00 - 5:00) 9:08:32 Plan of Care:Hemodynamics will remain stable., Cardiac rhythm will remain stable., Comfort level will be maintained., Respiratory function will remain adequate., Patient/ family verbilizes understanding of procedure., Procedure tolerated without complication., Recovers from procedure without complications.. 9:08:36 Patient received from Pre/Post Procedure Room to CCL 1 Alert and oriented. Tansferred to table in Supine position. 9:08:37 Warm blankets applied, and marcelino hugger turned on for patient comfort. 9:08:38 Correct patient and procedure confirmed by team. 9:08:38 ECG and BP/O2 sat monitors applied to patient. 9:11:18 Vital chart was started 9:11:30 0.9% NaCl 100 ml/hr I.V. was administered by Kenzie Mckeon RN; used for procedure; 9:11:36 Oxygen 2 l/min etCO2 Nasal cannula was administered by Kenzie Mckeon RN; used for procedure; 9:11:43 Lidocaine 2% 20ml vial added to field was administered by Robert Chappell MD; for local anesthetic; 9:11:46 Heparin Flush Bag (1000units/500ml NS) 2 bags added to field was administered by Robert Chappell MD; used for procedure; 9:17:16 Baseline sample Acquired. 9:17:20 Rhythm: sinus rhythm 9:17:22 Full Disclosure recording started 9:17:34 H&P Date Dictated: 05/12/2018 Within 30 days and on chart.. 9:17:35 Pre-procedure instructions explained to patient. 9:17:36 Pre-op teaching completed and patient verbalized understanding. 9:17:38 Family in waiting room. 9:17:40 Patient NPO since Midnight. 9:17:46 Patient allergic to No known allergies 9:17:52 Is the patient allergic to Iodine/contrast media? No. 9:17:55 Is patient on blood thinner?Yes 9:17:57 ACC The patient was administered the following blood thiners within the last 24 hours: ACCPlavix 9:18:04 loaded only 9:18:07 Patient diabetic? No. 9:18:08 ----Pre-sedation anethsthesia assessment.---- 9:18:10 Previous problem with sedation/anesthesia? No ? 9:18:12 Snore? Yes 9:18:13 Sleep apnea? No 9:18:14 Deviated septum? No 9:18:16 Opens mouth fully? Yes 9:18:17 Sticks out tongue? Yes 9:18:20 Airway obstruction? No ? 9:18:22 Dentures? No ? 9:18:25 Pre procedure: right dorsailis pedis pulse 1+ Palpable, but thready & weak; easily obliterated 9:18:30 Patient pain scale 0/10 ?. 9:18:43 IV patent on arrival in left antecubital with 0.9% NaCl at 10ml/hr. 9:18:46 Lab results completed and on chart. 9:18:51 Right groin area was prepped with chlora-prep and draped in sterile fashion 9:18:52 Alarms reviewed by R. N. 9:18:53 Sharps counted by scrub and verified by R.N. 9:18:55 Physician paged 9:18:58 Use device set Femoral Dx 9:18:59 ACIST Syringe (20665) opened to sterile field. 9:19:00 Bag Decanter (2002) opened to sterile field. 9:19:00 Medline Cath Pack ([id number]) opened to sterile field. 9:19:01 DIAGNOSTIC WIRE .035 260cm J wire (164168) opened to sterile field. 9:19:02 ACIST Hand Control (03826) opened to sterile field. 9:19:02 ACIST Manifold (11576) opened to sterile field. 9:19:03 DIAGNOSTIC Multipack 5Fr catheter set ([id number]) opened to sterile field. 9:19:03 Tegaderm 4 x 4 (1626W) opened to sterile field. 9:19:05 SHEATH 5FR Orlando (EES258) opened to sterile field. 9:36:39 Zero performed for pressure channel P1 9:47:41 Physician arrived 9:47:42 --------ALL STOP TIME OUT------ 9:47:42 Final Timeout: patient, procedure, and site verified with staff and physician. All members of the team are in agreement. 9:47:44 Right groin site verified by team. 9:47:48 Maximum allowable contrast dose 95ml. Physician notified. 9:47:51 Versed 2 mg I.V. was administered by Kenzie Mckeon RN; for sedation; 9:47:53 Fire Safety Assessment: A--An alcohol-based skin anteseptic being used preoperatively., C--Open oxygen or nitrous oxide is being used., D--An ESU, laser, or fiber-optic light is being used. 9:47:56 Physical assessment completed. ASA score P 2 - A patient with mild systemic disease as per Robert Chappell MD. 9:47:57 Fentanyl 100 mcg I.V. was administered by Kenzie Mckeon RN; for sedation; 9:48:00 Sedation plan: IV Moderate Sedation Medication:Versed, Fentanyl 9:51:14 Fentanyl 100 mcg I.V. was administered by Kenzie Mckeon RN; for sedation; 9:51:51 Versed 2 mg I.V. was administered by Kenzie Mckeon RN; for sedation; 9:51:56 Procedure started. 9:53:01 Local anesthetic to right femoral artery with Lidocaine 2% by Robert Chappell MD.INITIAL ACCESS ONLY 9:53:10 A 5 Fr sheath was inserted into the Right Femoral artery 9:53:18 A MULTIPACK Pigtail 5 Fr catheter was advanced over the wire and used for LV Angiography. 9:53:21 LV angiography performed. 9:53:32 EF : 55 % 9:53:39 Catheter removed. 9:53:46 A MULTIPACK JL 4.0 5Fr catheter was advanced over the wire and used for Left Coronary Angiography. 9:53:50 LCA angiography performed. 9:54:03 Catheter removed. 9:54:20 Versed 2 mg I.V. was administered by Kenzie Mckeon RN; for sedation; 9:54:23 A MULTIPACK 3DRC 5Fr catheter was advanced over the wire and used for Right Coronary Angiography. 9:54:49 RCA angiography performed. 9:56:01 Catheter removed. 9:56:09 EXOSEAL 5Fr (EX500) opened to sterile field. 9:56:57 Sheath removed intact; hemostasis achieved with Exoseal to the Right Femoral artery. 9:56:59 Procedure ended.(Physican Out) 9:57:35 Fluoroscopy time 00.80 minutes. 9:57:39 Versed 2 mg I.V. was administered by Kenzie Mckeon RN; for sedation; 9:57:39 Fluoroscopy dose: 503 mGy 9:57:39 Flurop Dose total: 503 9:57:47 Contrast amount:Isovue 300 57ml. 9:57:50 Sharps counted by scrub and verified by R.N. 9:57:51 Insertion/operative site no bleeding no hematoma. 9:57:54 Post-op/insertion site Right Femoral artery dressed using a 4 x 4 and Tegaderm. 9:57:57 Post right femoral artery:stable 9:57:59 Post Procedure Pulses reassessed and unchanged 9:58:02 Post procedure: right dorsailis pedis pulse 2+ Normal; easily identifiable; not easily obliterated. 9:58:05 Post procedure rhythm: sinus rhythm 9:58:06 Post procedure instruction explained to patient.Patient verbalizes understanding. 9:58:08 Procedure and supply charges have been captured, reviewed, submitted and are correct. 9:58:26 Procedure Complication : No complications 9:58:28 Vital chart was stopped 9:58:29 See physician's report for complete and final results. 9:58:31 Report given to Pre/Post Procedure Room. 9:58:34 Patient transfered to Pre/Post Procedure Room with Stretcher. 9:58:37 Procedure ended. 9:58:37 Full Disclosure recording stopped 9:58:40 End room use (Document Last) Device Usage Item Name Manufacture Quantity Catalog Hospital Part Current Minimal L ot# / Number Charge Number Stock Stock Serial# Code [place] [address] 24817 [id number] [id number] 209881 20 Syringe Medical (83926) Systems Inc Bag Microtek 1 2001S 412544 67428 766486 5 Decanter Medical Inc. () Medline Medline 1 [id number] 427718 75409 492522 5 Cath Pack ([id number]) DIAGNOSTIC St Reza 1 515004 882053 338799 683681 30 WIRE .035 260cm J wire (361125) ACIST Hand Acist 1 44899 816929 831463 618036 5 Control Medical (98807) Systems Inc ACIST Acist 1 81446 976933 524101 960561 5 Manifold Medical (64326) Systems Inc DIAGNOSTIC Cardinal 1 UI0525 460403 21036 636294 30 Multipack Health 5Fr catheter set (NL4475) Tegaderm 4 3M 1 1626W 969722 950780 454721 5 x 4 (1626W) SHEATH 5FR Terumo 1 GEI194 249716 065514 794781 5 Orlando (IDT522) MULTIPACK Cardinal 1 451624 5 Pigtail 5 Health Fr catheter MULTIPACK Cardinal 1 386792 5 JL 4.0 5Fr Health catheter MULTIPACK Cardinal 1 723537 5 3DRC 5Fr Health catheter EXOSEAL 5Fr Cardinal 1 EX500 [id number] 571469 517819 10 (EX500) Health Signature Audit Sebastian Stage Time Signature Unsigned Intra-Procedure 05/13/2018 Roger CORTÉS(Osmel) 10:03:42 AM Signatures Monitor : Roger Bowens RT Signature : Date : Time : [place] [id number] [place] [address]
[2018-05-13] MEDS ORDERED: BUSPAR10 MG PO (07:58)
[2018-05-13] MEDS ORDERED: LIPITOR10 MG (07:59)
[2018-05-13 08:06] VITALS: BP 117/79; Ht 170.2 cm; Wt 92.3 kg
[2018-05-13 08:28] LABS: BASOPHILS 0.6 % (0-2); EOSINOPHILS 8.6 % (0-7); HEMATOCRIT 46.1 % (42.0-54.0); HEMOGLOBIN 16.4 g/dL (13.5-17.5); IMMATURE GRANULOCYTES 0.2 % (0-5); LYMPHOCYTES 31.8 % (15-50); MCHC 35.6 g/dL (31.0-37.0); MCV 89.9 fL (80.0-100.0); MEAN PLATELET VOLUME 12.2 fL (7.4-10.4); NEUTROPHILS 50.8 % (40-80); PLATELET COUNT 146 10x3/uL (130-400); RBC 5.13 10x6/uL (4.20-6.10); RDW 13.2 % (11.5-14.5); WBC 6.3 10x3/uL (4.8-10.8)
[2018-05-13 08:30] LABS: ANION GAP 11.9 mmol/L (8-16); CALCIUM 9.1 mg/dL (8.5-10.1); CARBON DIOXIDE 32.9 mmol/L (21.0-32.0); CREATININE - SERUM 1.2 mg/dL (0.6-1.3); POTASSIUM - SERUM 3.8 mmol/L (3.5-5.1)
--- NOTE | 2018-05-13 10:20 | NUR ---
RECIEVED TO ROOM VIA STRETCHER FROM [facility] [employer] [facility] WITH 5 FR EXOSEAL R/GROIN CDI NO BLEEDING OR HEMATOMA NOTED. HR 86 BP 113/69 CHEST PAIN IS DENIED. CALL LIGHT IN REACH WITH FAMILY AT BEDSIDE
--- NOTE | 2018-05-13 10:47 | NUR ---
5FR EXOSEAL R/GROIN REMAINS CDI WITH NO DISTRESS NOTED. INSTRUCTED PATIENT TO KEEP HEAD FLAT ON PILLOW WITH RLE STRAIGHT
--- NOTE | 2018-05-13 11:03 | NUR ---
PATIENT RESTING QUIETLY WITH NO DISTRESS. VSS AND 5 FR EXOSEAL R/GROIN IS CDI
--- NOTE | 2018-05-13 11:14 | NUR ---
PATIENT CONTINUES TO SLEEP WITH NO DISTRESS R/GROIN IS CDI
--- NOTE | 2018-05-13 11:31 | NUR ---
NO CHANGE IN ASSESSMENT PATIENT CONTINUES TO SLEEP
--- NOTE | 2018-05-13 11:51 | NUR ---
DR ARMSTRONG AT BEDSIDE WITH PATIENT AND FAMILY
--- NOTE | 2018-05-13 12:09 | NUR ---
REPOSITIONED TO [facility] UP 30 FOR COMFORT. R/GROIN REMAINS CDI. PIV REMOVED WITH DRESSING APPLIED PATIENT UP TO GET DRESSED FOR DISCHARGE HOME
--- NOTE | 2018-05-13 12:41 | NUR ---
VERBAL AND WRITTEN DISCHARGE GONE OVER WITH PATIENT AND . LEFT VIA WC TO [facility]ARK[facility] FOR TRANSPORT HOME NO DISTRESS
--- NOTE | 2018-05-14 11:54 | OP ---
PATIENT NAME: ANICETO MOON MEDICAL RECORD: [id number] :67 LOCATION:[facility] ADMISSION DATE: SURGEON: JR ARMSTRONG MD DATE OF OPERATION: 05/13/2018 PROCEDURES: 1. Left heart catheterization. 2. Selective coronary angiography. 3. Left ventriculogram. PROCEDURE IN DETAIL: After informed consent was obtained and after a detailed description of risks, benefits as well as alternative therapies, the patient elected to proceed with angiogram and heart catheterization. The right femoral area was prepped and draped in normal sterile fashion. Right femoral artery was cannulated via modified Seldinger technique with placement of 6-Occitan sheath. All catheters exchanged through this sheath. FINDINGS: The left ventriculogram was performed in standard 30-degree KWOK view, reveals good cardiac wall motion throughout all segments. Overall ejection fraction estimated 60%. SELECTIVE CORONARY ANGIOGRAPHY: 1. Left main has no significant angiographic disease. 2. Left anterior descending has 90% in-stent restenosis at the ostium. The diagonal stent has 95% in-stent restenosis. 3. Left circumflex has 80% stenosis proximally at the bifurcation of the obtuse marginal and the circumflex. 4. Right coronary artery has moderate irregularities, but no flow-limiting stenosis. OVERALL IMPRESSION: Significant restenosis of all the previously placed stents on the left side with significant disease in the circumflex and obtuse marginal. Evaluate for bypass surgery of the circumflex, obtuse marginal, diagonal, and LAD. TRANSINT:[id number] Voice Confirmation ID: [id number] DOCUMENT ID: [id number] JR ARMSTRONG MD at 1154 CC: [id number] DICTATION DATE: 05/13/18 0959 WEB CONTENT DIRECTOR: 05/13/18 1019 DEP CLI 05/13/18 [place] [id number]
== END 2018-05-13 12:42 | disposition home or self-care (01) ==
LOC: D.CATH 07:29
PROVIDERS: ATTEND Internal Medicine Interventional Cardiology
DX: T82.855A Stenosis of coronary artery stent, initial encounter (principal); Z01.812 Encounter for preprocedural laboratory examination

== ENCOUNTER 2018-05-21 13:00 | Inpatient (IN) | payer BC ==
[~2018-05-21] VITALS: Ht 170.2 cm; Wt 100.0 kg
[~2018-05-21 13:00] MED LIST changes: +BUSPAR10 MG PO; +LIPITOR10 MG
[2018-05-21] MEDS ORDERED: XANAX0.25 MG PO (14:25)
[2018-05-21] MEDS ORDERED: BUPROPION XL300 MG PO (14:26)
[2018-05-21 15:54] LABS: BASOPHILS 0.5 % (0-2); EOSINOPHILS 4.6 % (0-7); HEMATOCRIT 47.4 % (42.0-54.0); HEMOGLOBIN 16.8 g/dL (13.5-17.5); IMMATURE GRANULOCYTES 0.1 % (0-5); LYMPHOCYTES 29.5 % (15-50); MCH 31.7 pg (26.0-34.0); MCHC 35.4 g/dL (31.0-37.0); MCV 89.4 fL (80.0-100.0); MEAN PLATELET VOLUME 12.6 fL (7.4-10.4); MONOCYTES 6.6 % (2-11); NEUTROPHILS 58.7 % (40-80); PLATELET COUNT 168 10x3/uL (130-400); RDW 12.7 % (11.5-14.5); WBC 7.9 10x3/uL (4.8-10.8)
[2018-05-21 15:56] LABS: APPEARANCE CLEAR (CLEAR); BILIRUBIN NEGATIVE (NEGATIVE); COLOR YELLOW (YELLOW); GLUCOSE NEGATIVE (NEGATIVE); KETONE NEGATIVE (NEGATIVE); NITRITE NEGATIVE (NEGATIVE); PROTEIN NEGATIVE (NEGATIVE); UROBILINOGEN NORMAL (NORMAL)
[2018-05-21 16:07] LABS: APTT 28.2 SECONDS (22.8-39.4); INR 1.09 (0.85-1.17); PROTIME 13.6 SECONDS (11.6-15.0)
[2018-05-21 16:22] LABS: ALBUMIN 4.1 g/dL (3.4-5.0); ANION GAP 9.3 mmol/L (8-16); BILIRUBIN - TOTAL 0.45 mg/dL (0.2-1.3); CALCIUM 9.3 mg/dL (8.5-10.1); CARBON DIOXIDE 33.7 mmol/L (21.0-32.0); CREATININE - SERUM 1.2 mg/dL (0.6-1.3); T4 THYROXIN - FREE 0.91 ng/dL (0.76-1.46); THYROID STIMULATING HORMONE 2.04 uIU/mL (0.36-3.74); URIC ACID 5.2 mg/dL (2.6-7.2)
[2018-05-26] VITALS (41 sets, daily range): BP systolic 84–118; BP diastolic 44–75; BMI 32.3; BMI 34.0
--- NOTE | 2018-05-26 14:20 | NUR ---
PT ARRIVED VIA BED. PLASMALYTE ON AT 100CC/HR. BP 120/76 NITRO ON AT 2CC/HR.
--- NOTE | 2018-05-26 17:20 | NUR ---
PT EXTUBATED TO 4L NC.
--- NOTE | 2018-05-26 17:42 | NUR ---
SYSTOLIC JENNIFER PRESSURE BOUNCING [address] VELAZQUEZ NOTIFIED CUFF [id number]/71. BAILEY AT 0.9MCG/KG/MIN.
--- NOTE | 2018-05-26 18:17 | NUR ---
DR VELAZQUEZ NOTIFIED OF JENNIFER PRESSURE. OK TO GO BY CUFF PRESSURE. TITRATE BAILEY TO JENNIFER PRESSURE KEEP > 60.
--- NOTE | 2018-05-26 19:08 | NUR ---
REPORT RECEIVED, SHIFT ASSESSMENT COMPLETED PER FLOW SHEET. AAOX4. PPP. RT IJ CVL PATENT, INFUSING PLASMALYTE AT 100 MLS/HR, ZINACEF AT 11.4 MLS/HR, AND BAILEY-SYNEPRINE AT 0.9 MCG/KG/MIN. X2 SUBSTERNAL CT TO 20 CM SUCTION, NO AIR LEAK. X1 SUBSTERNAL CT TO GRIFFIN DRAIN, COMPRESSED WITH BLOODY OUTPUT. SUBSTERNAL TPM WIRES COILED AND SECURED. VILLEGAS CATHETER TO GRAVITY SECURED. RT LEG COBAN DRESSING C/D/I. ORDERS RECEIVED FROM DAY SHIFT DENISE JAMISON TO TITRATE BAILEY-SYNEPHRINE DOWN ACCORDING TO ARTERIAL NUMBER, CAN TITRATE DOWN IF MAP >[address] VELAZQUEZ'S ORDERS[address] SEE FLOW SHEET FOR COMPLETE ASSESSMENT. WILL CONTINUE TO MONITOR.
--- NOTE | 2018-05-26 19:16 | NUR ---
C/O INCISIONAL PAIN, PRN PERCOCET GIVEN, SEE EMAR FOR DETAILS. DENIES OTHER NEEDS. WILL CONTINUE TO MONITOR.
--- NOTE | 2018-05-26 19:31 | NUR ---
ARTERIAL MAP ABOVE 60, TITRATING BAILEY-SYNEPHRINE DOWN. WILL CONTINUE TO MONITOR.
--- NOTE | 2018-05-26 20:10 | NUR ---
PRN TYLENOL GIVEN FOR ELEVATED TEMPERATURE PER DOCTOR'S ORDERS. WILL CONTINUE TO MONITOR.
--- NOTE | 2018-05-26 21:14 | NUR ---
SCHEDULED MEDS GIVEN. AT BEDSIDE. QUESTIONS ANSWERED, UPDATE GIVEN. NO COMPLAINTS. WILL CONTINUE TO MONITOR.
--- NOTE | 2018-05-26 21:15 | NUR ---
FSBS >200 X2, 2 UNIT BOLUS GIVE, AND INSULIN DRIP INTIATED AT 1 UNIT/HR PER PROTOCOL. WILL CONTINUE TO MONITOR.
--- NOTE | 2018-05-26 23:00 | NUR ---
REASSESSMENT COMPLETED PER FLOW SHEET, SEE FOR DETAILS. NO ACUTE DISTRESS NOTED. DENIES PAIN OR NEEDS. WILL CONTINUE TO MONITOR.
[2018-05-27] VITALS (83 sets, daily range): BP systolic 81–127; BP diastolic 48–98; Ht 170.2 cm; Wt 100.0 kg
--- NOTE | 2018-05-27 01:00 | NUR ---
WATER PROVIDED PER PATIENT'S REQUEST, DENIES OTHER NEEDS.
--- NOTE | 2018-05-27 03:00 | NUR ---
REASSESSMENT COMPLETED PER FLOW SHEET, SEE FOR DETAILS. NO ACUTE DISTRESS NOTED. DENIES PAIN OR NEEDS. WILL CONTINUE TO MONITOR.
--- NOTE | 2018-05-27 04:43 | NUR ---
ARTERIAL BP 100/55 MAP 70, NEOSYNEPRHINE TURNED OFF, WILL CONTINUE TO MONITOR.
--- NOTE | 2018-05-27 05:08 | NUR ---
PATIENT STATING "I AM HAVING TROUBLE BREATHING" STATES HE FEELS "CHEST PRESSURE" AND DOES NOT RADIATE ANYWHERE. HR 103. ARTERIAL BP 114/59. MAP 77. O2 SAT 97% ON [address] ASSESSED, LT GRIFFIN DRAIN COMPRESSED EMPTIED AND OBTAINED 70 MLS BLOODY OUTPUT UPON RECOMPRESSION CONTINOUS BLOODY OUTPUT NOTED IN BULB, TOTAL OF 360 MLS OF BLOOD EMPTIED. CALLED RADIOLOGY FOR STAT CHEST XR. 0516 [address] AND SPOKE TO DR. VELAZQUEZ INFORMED HIM OF PATIENT'S COMPLAINTS, CT OUTPUT, VS, AND IV DRIPS, AND ORDER FOR STAT XR. NEW ORDERS RECEIVED FOR ABG. 0531 290 MLS OF BLOODY OUTPUT EMTPIED FROM LT GRIFFIN DRAIN CT. 0538 ABG RESULTS NOW AVAILABLE. SPOKE TO DR. VELAZQUEZ. UPDATE GIVEN ON PATIENT STATUS, ABG'S REVIEWED. NEW ORDERS RECEIVED.
--- NOTE | 2018-05-27 05:43 | NUR ---
CALLED LAB TO OBTAIN STAT [address] VELAZQUEZ'S ORDERS.
--- NOTE | 2018-05-27 05:57 | NUR ---
OR PERSONNEL HERE TO TAKE PATIENT TO OR.
--- NOTE | 2018-05-27 07:00 | NUR ---
REPORT RECEVIED FROM THE OF GOING RN. PT CURRENTLY IN THE OR.
[2018-05-27 07:14] LABS: INR 1.3 (0.85-1.17); PROTIME 15.7 SECONDS (11.6-15.0)
[2018-05-27 07:15] LABS: APTT 29.3 SECONDS (22.8-39.4)
--- NOTE | 2018-05-27 08:30 | NUR ---
PT ARRIVED IN THE UNIT. HOOKED TO ICU MONITORS. 8.0 ETT 23 AT THE LIP. PT AWAKE BUT EXTREAMLY DROWSEY BUT COOPERATIVE. RIGHT IJ CORDIS NOTED. C/D/I. SEE IV FLUIDS IN THE PTS FLOW SHEET. SUBSTERNAL DRESSING C/D/I. LEFT GRIFFIN DRAIN COMPRESSED WITH BLOODY DRAINAGED IN THE BULB. CT X2 NOTED LABLED A & P CONNECTED TO 20 OF SUCTION WITH NO AIR LEAK. BLOODY DRAINAGED NOTED. RIGHT WRIST DRESSING NOTED C/D/I. LEFT RADIAL JENNIFER NOTED WITH A GOOD WAVE FORM WITH A WRIST PROTECTOR ON. CAP REFILL < 3 SECONDS. RLE DRESSIN/KOBAN FROM ANKLE TO THIGH NOTED. PULSES PALPABLE. FC NOTED WITH CLEAR, YELLOW URINE. VSS AT THIS TIME. WILL CONT POC.
[2018-05-27 08:46] LABS: HEMATOCRIT 36.1 % (42.0-54.0); HEMOGLOBIN 12.4 g/dL (13.5-17.5); MCH 30.3 pg (26.0-34.0); MCHC 34.3 g/dL (31.0-37.0); MCV 88.3 fL (80.0-100.0); RBC 4.09 10x6/uL (4.20-6.10); RDW 13.6 % (11.5-14.5); WBC 10.7 10x3/uL (4.8-10.8)
[2018-05-27 09:00] LABS: ALBUMIN 2.5 g/dL (3.4-5.0); ANION GAP 13.2 mmol/L (8-16); BILIRUBIN - TOTAL 0.63 mg/dL (0.2-1.3); CALCIUM 7.1 mg/dL (8.5-10.1); CARBON DIOXIDE 26.4 mmol/L (21.0-32.0); CREATININE - SERUM 1.3 mg/dL (0.6-1.3); POTASSIUM - SERUM 4.6 mmol/L (3.5-5.1); PROTEIN - SERUM 5.1 g/dL (6.4-8.2)
--- NOTE | 2018-05-27 09:04 | NUR ---
PT TACHYCARDIC. PT ABLE TO FOLLOW COMMANDS. ASKED THE PT IF HE WAS HURTING AND HE SHOOK HIS HEAD YES. DR VELAZQUEZ NOTIFIED ABOUT THE TACHYCARDIA AND PAIN. PRN MORPHINE GIVEN.
--- NOTE | 2018-05-27 09:32 | NUR ---
G'S OBTAINED. GIVE 1 G CA AND 40KCL/2H PER DR VELAZQUEZ.
--- NOTE | 2018-05-27 09:45 | NUR ---
DR VELAZQUEZ STATED OK TO EXTUBATED SOON.
--- NOTE | 2018-05-27 10:45 | NUR ---
ABG OBTAINED AND NIF AND VITAL CAPACITY PER RT. PT EXTUBATED AND PLACED ON O2 AT 3L VIA NC. PT INSTRUCTED TO TCDB. CHEST SPLINTED WITH A PILLOW. PT ABLE TO COUGHT BUT COUGH WAS WEAK. PT USED IS AND PULLED A LITTLE UNDER 750. EDUCATED THE PT THE IMPORTANCE OF TCDB AND USING IS. AT THE PTS BEDSIDE.
--- NOTE | 2018-05-27 14:32 | MORECARE ---
CASE MANAGEMENT DISCHARGE SUMMARY PATIENT: ANICETO MOON UNIT: [id number] ADM DATE: 05/26/18 AGE: 52 : 67 SEX: M ROOM/BED: [facility] AUTHOR: EBONY RODRIGUEZ PHYSICIAN: REFERRING PHYSICIAN: SAURABH VELAZQUEZ MD DATE OF SERVICE: 05/27/18 Discharge Plan Patient Name: ANICETO MOON Facility: [facility]:[place] : 1965 Planned Disposition: Home Anticipated Discharge Date: Discharge Date: Expected LOS: Initial Reviewer: [email or web address] Initial Review Date: 05/26/2018 Generated: 05/27/18 3:31 pm DCPIA - Discharge Planning Initial Assessment Updated by [email or web address]: Judie Lopez on 05/27/18 2:28 pm * Is the patient Alert and Oriented? Yes * How many steps to enter\exit or inside your home? * PCP LEENA * Pharmacy [facility] [address] * Preadmission Environment Home with Family * ADLs Independent * Equipment None * List name and contact numbers for known caregivers / representatives who currently or will assist patient after discharge: MARYSE WOOTEN - DAUGHTER- [phone] LISA MOON - - [phone] * Verbal permission to speak to the caregivers and representatives has been obtained from the patient. Yes * Community resources currently utilized None * Additional services required to return to the preadmission environment? No * Can the patient safely return to the preadmission environment? Yes * Has this patient been hospitalized within the prior 30 days at any hospital? No Patient Name: ANICETO MOON Page 65583 at 1432 All edits/amendments must be made on the electronic document DICTATION DATE: 05/27/181430 GEAR CODING MACHINE OPERATOR: MAK 05/27/18 143 RPT#: [id number] DC DATE: STATUS: ADM IN [facility] [address] [place] [address] END OF REPORT
--- NOTE | 2018-05-27 14:41 | MORECARE ---
CASE MANAGEMENT DISCHARGE SUMMARY PATIENT: ANICETO MOON UNIT: [id number] ADM DATE: 05/26/18 AGE: 52 : 67 SEX: M [facility] AUTHOR: MICHAEL,DOC PHYSICIAN: REFERRING PHYSICIAN: SAURABH VELAZQUEZ MD DATE OF SERVICE: 05/27/18 Discharge Plan Patient Name: ANICETO MOON Facility: [facility]:[place] : 1965 Planned Disposition: Home Anticipated Discharge Date: Discharge Date: Expected LOS: Initial Reviewer: [email or web address] Initial Review Date: 05/26/2018 Generated: 05/27/18 3:41 pm Comments DCP- Discharge Planning Updated by [email or web address]: Judie Lopez on 05/27/18 1:[address] Patient Name: ANICETO MOON Admission Status: Elective Accout number: [id number] Admission Date: 05-26-2018 : 1965 Admission Diagnosis: Attending: SAURABH VELAZQUEZ Current LOS: 1 Anticipated DC Date: Planned Disposition: Home Primary Insurance: [employer] Discharge Planning Comments: CM met with patient and spouse at bedside. Patient's Liss is at his bedside and answered CM discharge planning questions. Liss states that patient lives at their home and plans to return there upon discharge. She denies any use of medical equipment or home health services prior to admission. Liss denies any discharge needs at this time. CM will continue to follow and assist as needed with discharge planning / needs. Telesales Representative: Judie Lopez DCPIA - Discharge Planning Initial Assessment Updated by [email or web address]: Judie Lopez on 05/27/18 2:28 pm * Is the patient Alert and Oriented? Yes * How many steps to enter\exit or inside your home? * PCP LEENA * Pharmacy [facility] [address] * Preadmission Environment Home with Family * ADLs Independent * Equipment None * List name and contact numbers for known caregivers / representatives who currently or will assist patient after discharge: MARYSE WOOTEN - DAUGHTER- [phone] LISS MOON - - [phone] * Verbal permission to speak to the caregivers and representatives has been obtained from the patient. Yes * Community resources currently utilized None * Additional services required to return to the preadmission environment? No * Can the patient safely return to the preadmission environment? Yes * Has this patient been hospitalized within the prior 30 days at any hospital? No Last DP export: 05/27/18 1:32 p Patient Name: ANICETO MOON Page 48172 at 1441 All edits/amendments must be made on the electronic document DICTATION DATE: 05/27/18 1441 GANG SAW OPERATOR: MAK 05/27/18 1441 RPT#: [id number] DC DATE: STATUS: ADM IN [facility] [address] [place] [address] END OF REPORT
--- NOTE | 2018-05-27 14:46 | NUR ---
DR VELAZQUEZ NOTIFIED ABOUT TACHYCARDIA AND PT SLIGHTLY HYPOTENSIVE. ORDERS TO START BAILEY AND FOR 2.5 OF IV LOPRESSOR.
--- NOTE | 2018-05-27 15:00 | NUR ---
DR VELAZQUEZ INSTRCUTED TO GIVE TYLENOL FOR 99 ORAL TEMP AND FEBRILE FC TEMP.
--- NOTE | 2018-05-27 19:33 | NUR ---
PATIENT C/O PAIN IN CHEST DULL ACHE, PAIN MED GIVEN PER ORDERS.
[2018-05-28] VITALS (54 sets, daily range): BP systolic 80–134; BP diastolic 49–78
--- NOTE | 2018-05-28 01:03 | NUR ---
PATIENT UP TO BEDSIDE DANGELED APPROX 10 MINS, TOLERATED WELL. MORPHINE GIVEN FOR PAIN. CALL LIGHT WITHIN REACH, BED IN LOW POSITION.
[2018-05-28 06:03] LABS: HEMATOCRIT 32.6 % (42.0-54.0); HEMOGLOBIN 11.1 g/dL (13.5-17.5); MCH 30.1 pg (26.0-34.0); MCV 88.3 fL (80.0-100.0); MEAN PLATELET VOLUME 11.7 fL (7.4-10.4); RBC 3.69 10x6/uL (4.20-6.10); RDW 14.5 % (11.5-14.5)
[2018-05-28 06:04] LABS: WBC 14.7 10x3/uL (4.8-10.8)
[2018-05-28 06:40] LABS: ALBUMIN 2.3 g/dL (3.4-5.0); ALKALINE PHOSPHATASE 49 U/L (46-116); ALT (SGPT) 20 U/L (10-68); BILIRUBIN - TOTAL 0.82 mg/dL (0.2-1.3); CALC OSMOLALITY 283 mosm/kg (275-300); CALCIUM 7.6 mg/dL (8.5-10.1); CHLORIDE - SERUM 107 mmol/L (98-107); CREATININE - SERUM 1.1 mg/dL (0.6-1.3); GLUCOSE 137 mg/dL (74-106); POTASSIUM - SERUM 4.2 mmol/L (3.5-5.1); PROTEIN - SERUM 5.3 g/dL (6.4-8.2); SODIUM 141 mmol/L (136-145); UREA NITROGEN 15 mg/dL (7-18); eGFR NON AFRICAN AMERICAN 75 mL/min (90-120)
--- NOTE | 2018-05-28 07:30 | NUR ---
REPORT RECEVIED FROM THE OFF GOING RN. SEE ASSESSMENT IN THE PTS FLOW SHEET. PT SITTING UPRIGHT IN THE BEDSIDE CHAIR. SINUS TACH ON THE MONITOR OF 130. VSS. 2L VIA NC. RIGHT IJ CVL NOTED DRESSING C/D/I. MIDSTERNAL AND SUBSTERNAL DRESSING C/D/I. CT X2 AND LEFT GRIFFIN DRAIN NOTED. BLOODY DRAINAGE NOTED. FC NOTED WITH CLEAR, YELLOW URINE. RIGHT RADIAL JENNIFER NOTED WITH THE WRIST PROTECTOR ON. GOOD WAVE FORM. LEFT WRIST DRESSING C/D/I. HARVEST SITE DRESSING C/D/I. CALL LIGHT IN REACH. PT DENIES PAIN AT THIS TIME. BREAKFAST TRAY PROVIDED FOR THE PT. PT PULLS ABOUT 750 ON HIS IS. INSTRUCTED TO USE 10X'S/H. WILL CONT POC.
--- NOTE | 2018-05-28 09:19 | NUR ---
PT COMPLAINING OF CHAIR HURTING HIS BUTTOCKS. ASSISTED THE PT WITH REPOSITIONED. CALLED CENTRAL SUPPLY AND ORDERED A CUSHION.
--- NOTE | 2018-05-28 10:30 | NUR ---
PT ASSISTED BACK INTO BED. CT A AND P PULLED BY THANH WALKER PER DR VELAZQUEZ. SUBSTERNAL DRESSING CHANGED. MANDEEP AND JENNIFER PULLED. LEFT WRIST DRESSING REMOVED. INCISION WELL APRPOXIMATED AND DRY. LEFT MERVAT. PT TOLERATED ALL OF THIS WELL. WILL CONT POC.
--- NOTE | 2018-05-28 12:32 | NUR ---
PT ASSISTED OOB AND INTO HIS BEDSIDE CHAIR. PT TRANSFERED WELL. LUNCH TRAY PRIVIDED FOR THE PT.
--- NOTE | 2018-05-28 16:38 | NUR ---
PT SLOWEY BECOMING TACHYCARDIC. BP NORMAL. DR VELAZQUEZ NOTIFIED. ORDERS TO 12.5 PO LOPRESSOR NOW.
--- NOTE | 2018-05-28 19:00 | NUR ---
REPORT RECEIVED AND ASSESSMENT COMPLETED. SEE FLOWSHEET FOR FULL DETAILS. VSS. WILL MONITOR THROUGHOUT SHIFT.
--- NOTE | 2018-05-28 23:13 | NUR ---
REASSESSMENT COMPLETED. SEE FLOWSHEET FOR FULL DETAILS. VSS. WILL MONITOR. PT ASSISTED TO RESTROOM TO ATTEMPT BM. ONLY GAS PRODUCED AT THIS TIME.
[2018-05-29] VITALS (24 sets, daily range): BP systolic 98–124; BP diastolic 52–76
[2018-05-29 05:50] LABS: HEMATOCRIT 28.3 % (42.0-54.0); HEMOGLOBIN 9.6 g/dL (13.5-17.5); MCH 30.2 pg (26.0-34.0); MCHC 33.9 g/dL (31.0-37.0); MEAN PLATELET VOLUME 11.3 fL (7.4-10.4); RBC 3.18 10x6/uL (4.20-6.10); RDW 14.4 % (11.5-14.5); WBC 9.6 10x3/uL (4.8-10.8)
[2018-05-29 06:07] LABS: ALBUMIN 2.1 g/dL (3.4-5.0); ALKALINE PHOSPHATASE 46 U/L (46-116); ALT (SGPT) 19 U/L (10-68); BILIRUBIN - TOTAL 0.72 mg/dL (0.2-1.3); CALC OSMOLALITY 283 mosm/kg (275-300); CALCIUM 7.9 mg/dL (8.5-10.1); CARBON DIOXIDE 27.3 mmol/L (21.0-32.0); CHLORIDE - SERUM 106 mmol/L (98-107); GLUCOSE 108 mg/dL (74-106); POTASSIUM - SERUM 3.6 mmol/L (3.5-5.1); PROTEIN - SERUM 5.6 g/dL (6.4-8.2); SODIUM 141 mmol/L (136-145); UREA NITROGEN 17 mg/dL (7-18); eGFR NON AFRICAN AMERICAN 84 mL/min (90-120)
--- NOTE | 2018-05-29 07:00 | NUR ---
REPORT RECEVIED FROM THE OFF GOING RN. SEE ASSESSMENT INT HE PTS FLOW SHEET. SINUS TACHYCARDIA NOTED 110'S. BP STABLE. PT ON ROOM AIR. PT TAKING SHALLOW BREATHS. PT C/O INSICIONAL PAIN. PAIN PILL PROVIDED WITH AM MEDS. SEE MAR FOR DETAILS. INSTRUCTED THE PT TO USE IS 10X'S/H. PT PULLS ABOUT 750 ON IS. RIGHT IJ CVL DRESSING C/D/I. MIDSTERNAL DRESSING C/D/I. SUBSTERNAL DRESSING C/D/I WITH TPM WIRES COILED AND A LEFT GRIFFIN DRAIN COMPRESSED WITH SERSOUSANG DRAINAGED. LEFT WRIST INCISION WELL APPROXIMATED WITHOUT DRAINAGE. NO S/SX OF INFECTION NOTED. RLE DRESSING C/D/I. MEAL TRAY PROVIDED FOR THE PT. ICE CREAM PROVIDED PER PT'S REQUEST. CALL LIGHT IN REACH. WILL CONT POC.
--- NOTE | 2018-05-29 08:45 | NUR ---
WASH CLOTHS AND WASH BASIN PROVIDED FOR THE PT AND THE PTS . IS ASSISTING WITH BATHING THE PT.
--- NOTE | 2018-05-29 09:10 | NUR ---
70CC OF SEROUSANG DRAINAGE EMPTIED FROM GRIFFIN DRAIN. BULB COMPRESSED.
--- NOTE | 2018-05-29 09:36 | NUR ---
PHYSICAL THERAPY AT THE PTS BEDSIDE. THEY AMBULATED WITH THE PT 250 FEET. PT STEADY ON HIS FEET. VSS. PT TOLERATED WELL.
--- NOTE | 2018-05-29 09:42 | NUR ---
Nutrition Follow Up: Chart reviewed. Pt is POD 3 CABG. Diet: Regular PO Intake: 20% meal avg BM: 05/26/18 I>O Wt stable Labs reviewed Meds noted including Reglan Rec continue current diet. Will continue to honor food preferences and provide supplements prn. RD following.
--- NOTE | 2018-05-29 11:09 | NUR ---
REASSESSMENT COMPLETED. INSTRCUTED THE PT TO TCDB MORE. PULLING ABOUT 750 ON IS. PT SPLINTED CHEST WITH PILLOW. PRODUCTIVE COUGH NOTED.
--- NOTE | 2018-05-29 11:59 | NUR ---
LUNCH TRAY PROVIDED FOR THE PT. VSS. DENIES PAIN. CALL LIGHT IN REACH. WILL CONT POC.
--- NOTE | 2018-05-29 15:09 | OP ---
PATIENT NAME: ANICETO MOON MEDICAL RECORD: [id number] :67 LOCATION:D.CVI D.CV04 ADMISSION DATE:05/26/18 SURGEON: SAURABH VELAZQUEZ MD DATE OF OPERATION: 05/27/2018 SURGEON: Saurabh Velazquez MD USED CAR RENOVATOR: Sean Paz OPERATION PERFORMED: Mediastinal exploration for hemorrhage and evacuation of hematoma. PREOPERATIVE DIAGNOSIS: Postoperative hemorrhage. POSTOPERATIVE DIAGNOSES: Chest wall hemorrhage with mediastinal and anterior left thorax hematoma, no active bleeding. ANESTHESIA: General endotracheal anesthesia. ESTIMATED BLOOD LOSS: 50 cc, a handful of clotted blood was removed. COMPLICATIONS: None. SPECIMENS: None. CONDITION: Stable. DISPOSITION: ICU. OPERATIVE FINDINGS: Exploration of the mediastinum revealed some clotted blood behind the sternotomy, but anterior to the pericardial closure and some clotted blood along the left anterior chest, but no significant left hemothorax. There was no active bleeding site along the internal mammary artery, internal mammary artery harvest site, and there was no blood within the pericardium where the chest tubes were patent. All arterial conduits and cannulation sites were inspected with no bleeding identified. Thorough antibiotic irrigation with vancomycin was performed. OPERATIVE INDICATION: Hemorrhage from the left lateral chest tube 12 hours postoperatively. DESCRIPTION OF PROCEDURE: The patient was brought emergently to the operating suite. General anesthesia was obtained. The patient was prepped and draped. The old glue and sutures were removed. Wires were removed. Sternum was opened. A thorough exploration was performed and vancomycin irrigation was used. Pericardium was opened and all arterial conduits, venous conduits and cannulation sites were identified and observed with the heart carefully lifted. The left chest was evacuated and irrigated. The chest tubes were made patent and the tip of the mediastinal chest tube was placed within the right pleural cavity. Sternum was closed with wires. Fascia was closed, subcutaneous tissue was closed, skin was closed. Dermabond was placed. The needle and sponge counts were correct. The patient was taken to ICU in stable condition. TRANSINT:[id number] Voice Confirmation ID: [id number] DOCUMENT ID: [id number] OPERATIVE REPORT [id number] ANICETO MOON SAURABH VELAZQUEZ MD at 1509 CC: [id number] DICTATION DATE: 05/27/18 0831 FRUIT WORKER: 05/27/18 0845 ADM IN [facility] [address] [id number]
--- NOTE | 2018-05-29 15:09 | OP ---
PATIENT NAME: ANICETO MOON MEDICAL RECORD: [id number] :67 LOCATION:D.CVI D.CV04 ADMISSION DATE:05/26/18 SURGEON: ZAN VELAZQUEZ MD DATE OF OPERATION: 05/26/2018 SURGEON: Zan Velazquez MD ASSISTANTS: 1. Sadi Padgett MD 2. Sean Paz OPERATIONS PERFORMED: 1. Coronary artery bypass graft times 3 (left internal mammary artery to LAD, radial artery from aorta to obtuse marginal, and reverse saphenous vein graft from aorta to first diagonal), 2 arterial and 1 venous grafts. 2. Left radial artery open harvest. PREOPERATIVE DIAGNOSES: Coronary artery disease, history of percutaneous coronary intervention. POSTOPERATIVE DIAGNOSES: Coronary artery disease, history of percutaneous coronary intervention. ANESTHESIA: General endotracheal anesthesia. ESTIMATED BLOOD LOSS: Total cardiopulmonary bypass with Cell Saver retransfusion. COMPLICATIONS: None. SPECIMENS: None. CONDITION: Stable. DISPOSITION: CV ICU. OPERATIVE FINDINGS: 1. Good quality left radial artery. 2. Good quality greater saphenous vein. 3. Good quality left internal mammary artery with 1.5-mm LAD with moderate disease. 4. Obtuse marginal 2.0 mm. 5. First diagonal 1.5 mm. 6. Transesophageal echocardiography normal prior to and after cardiopulmonary bypass. OPERATIVE INDICATION: Unstable angina and coronary artery disease with restenosis. PROCEDURE IN DETAIL: The patient was brought to the operating suite. General anesthesia was obtained. The patient was prepped and draped. The left radial artery was harvested as an open harvest. The artery and concomitant veins were dissected out. Side branches were clipped. Vessel was ligated proximally and distally, removed, and immediately perfused with heparinized papaverine and both containing solution. The arm was irrigated, hemostasis was ensured, then closed OPERATIVE REPORT [id number] ANICETO MOON in 2 layers, and then wrapped in place at the patient's side with appropriate padding. Simultaneously, open bridging incision was made just above the right knee and a segment of vein was removed. Side branches were clipped. This portion of the procedure was performed by the administrative personal assistant surgeon, Dr. Padgett. The use of administrative personal assistant surgeon saved approximately 30 minutes of general anesthesia time. Median sternotomy incision was made. Subcutaneous tissue was divided with electrocautery. Sternum was divided with a saw. Left hemisternum was elevated. Left pleural cavity was entered. Left internal mammary artery and vein were taken down as pedicle graft. Sternal retractor was placed. Pericardium was opened. Heparin was given. Aorta was cannulated. Dual stage venous cannula was inserted. Internal mammary was clipped distally and made ready for anastomosis. Activated clotting time was appropriately elevated and the patient was placed on cardiopulmonary bypass. Sites for distal anastomoses were selected. Antegrade cardioplegia needle was inserted. The patient's temperature was allowed to drift downward. Crossclamp was placed. Cardioplegia given antegrade and this was repeated at 15- to 20-minute intervals including down the completed vein grafts. Distal anastomosis was performed in standard technique. Proximal anastomosis 7-0 for the radial artery directly to the aorta and 6-0 for the vein graft, which was then de-aired after removing the clamp. Proximal and distal anastomotic sites were inspected for bleeding. The radial artery was inspected for any bleeding side branches and then with the patient in spontaneous rhythm, fully rewarmed, weaned from cardiopulmonary bypass, and was stable. The patient was decannulated. Aortic cannula sites were oversewn. Protamine was given. Drain was placed in mediastinum and left pleural cavity. Thorough irrigation was undertaken and hemostasis was ensured. Ventricular pacing wires were placed. Pericardial fat was approximated in the midline. Left chest was evacuated and irrigated. Internal mammary harvest site was made hemostatic. Sternum was closed with wires. Fascia was closed. Subcutaneous tissue was closed. Skin was closed. Dermabond was placed. Needle and sponge count was reported as correct. The patient was taken to ICU in stable condition. TRANSINT:[id number] Voice Confirmation ID: [id number] DOCUMENT ID: [id number] ZAN VELAZQUEZ MD at 1509 CC: JIMENA ROMAN M.D. and VIVIANA STERN MD [id number] DICTATION DATE: 05/26/18 155 TELEPHONY ENGINEER: 05/26/18 1708 ADM IN [place] [id number] [place] [id number]
--- NOTE | 2018-05-29 15:15 | NUR ---
PT ASSISTED BACK INTO BED. THANH WALKER PULLED LEFT GRIFFIN DRAIN PER DR VELAZQUEZ ORDER'S. DRESSING CHANGED AND IS C/D/I. PT TOLERATED WELL. WILL CONT POC.
--- NOTE | 2018-05-29 18:30 | NUR ---
DELAY IN MEAL TRAY PER KITCHEN. FAMILY PROIVED SONIC FOR THE PT.
--- NOTE | 2018-05-29 19:00 | NUR ---
REPORT RECEIVED AND ASSESSMENT COMPLETD. SEE FLOWSHEET
--- NOTE | 2018-05-29 23:31 | NUR ---
REASSESSMENT COMPLETED. FAMILY NO LONGER AT BEDSIDE. UPDATED ON PT CONDITION WHEN PRESENT. SEE FLOWSHEET FOR REASSESSMENT DETAILS
[2018-05-30] VITALS (24 sets, daily range): BP systolic 94–127; BP diastolic 49–71
[2018-05-30 05:58] LABS: HEMATOCRIT 27.7 % (42.0-54.0); HEMOGLOBIN 9.3 g/dL (13.5-17.5); MCH 29.9 pg (26.0-34.0); MCHC 33.6 g/dL (31.0-37.0); MCV 89.1 fL (80.0-100.0); MEAN PLATELET VOLUME 11.2 fL (7.4-10.4); RBC 3.11 10x6/uL (4.20-6.10); RDW 14.4 % (11.5-14.5); WBC 7.6 10x3/uL (4.8-10.8)
[2018-05-30 06:10] LABS: ALBUMIN 2.2 g/dL (3.4-5.0); ALKALINE PHOSPHATASE 52 U/L (46-116); ALT (SGPT) 23 U/L (10-68); BILIRUBIN - TOTAL 0.39 mg/dL (0.2-1.3); CALC OSMOLALITY 289 mosm/kg (275-300); CALCIUM 7.9 mg/dL (8.5-10.1); CARBON DIOXIDE 29.3 mmol/L (21.0-32.0); CHLORIDE - SERUM 107 mmol/L (98-107); POTASSIUM - SERUM 3.3 mmol/L (3.5-5.1); PROTEIN - SERUM 5.7 g/dL (6.4-8.2); SODIUM 143 mmol/L (136-145); UREA NITROGEN 19 mg/dL (7-18); eGFR NON AFRICAN AMERICAN 84 mL/min (90-120)
[2018-05-30 06:17] LABS: GLUCOSE 158 mg/dL (74-106)
--- NOTE | 2018-05-30 07:30 | NUR ---
AWAKE AND ALERT UP IN CHAIR AT BEDSIDE. SKIN WARM AND DRY. DRESSING MID CHEST AND SUBSTERNAL DRY AND INTACT. RIJ DRESSING DRY AND INTACT. MONITOR SR. REQUESTING PAIN PILL. NO DISTRESS ON ROOM AIR.
--- NOTE | 2018-05-30 09:00 | NUR ---
here update given. patient sitting up in chair. states pain is better. incentive spirot to 600ml. states he does short of breath when he walks the halls. voiding clear yellow urine.
--- NOTE | 2018-05-30 10:30 | NUR ---
ambulated in [place] with physical therapy. states he did get short of breath with ambulation. gait improving.
--- NOTE | 2018-05-30 11:30 | NUR ---
dressings dry and intact. right thigh.
--- NOTE | 2018-05-30 12:00 | NUR ---
lunch tray served ate well. no distress. dressings dry and intact. dr. mcdaniel here. ri central line removed. pressure held no bleeding at site or brusing. dressing applied. patient tolerated well.
--- NOTE | 2018-05-30 14:00 | NUR ---
up in chair at bedside watching tv. no distress
--- NOTE | 2018-05-30 14:38 | NUR ---
patient ambulating in [place] without assistances. gait good. no distress
--- NOTE | 2018-05-30 15:30 | NUR ---
ambulating in [place]. dressing dry and intact right leg and chest and substernal. left arm incision intact no redness or drainage. pain meds effective. taking po fluids well.
--- NOTE | 2018-05-30 16:52 | NUR ---
regular diet served. visitors at bedside
--- NOTE | 2018-05-30 18:01 | NUR ---
ambulating in [place] with . tolerating well. less shortness of breath. up in chair all day. good appetite. dressing dry and intact. monitor sr-st.
[2018-05-31] VITALS (7 sets, daily range): BP systolic 101–126; BP diastolic 57–71
[2018-05-31 06:07] LABS: HEMATOCRIT 27.5 % (42.0-54.0); HEMOGLOBIN 9.2 g/dL (13.5-17.5); MCH 29.9 pg (26.0-34.0); MCHC 33.5 g/dL (31.0-37.0); MCV 89.3 fL (80.0-100.0); MEAN PLATELET VOLUME 10.5 fL (7.4-10.4); RBC 3.08 10x6/uL (4.20-6.10); RDW 14.1 % (11.5-14.5)
[2018-05-31 06:09] LABS: WBC 5.5 10x3/uL (4.8-10.8)
[2018-05-31 06:25] LABS: ALBUMIN 2.1 g/dL (3.4-5.0); ALKALINE PHOSPHATASE 56 U/L (46-116); ALT (SGPT) 21 U/L (10-68); BILIRUBIN - TOTAL 0.38 mg/dL (0.2-1.3); CALC OSMOLALITY 281 mosm/kg (275-300); CALCIUM 8.1 mg/dL (8.5-10.1); CARBON DIOXIDE 28.7 mmol/L (21.0-32.0); CHLORIDE - SERUM 106 mmol/L (98-107); CREATININE - SERUM 0.9 mg/dL (0.6-1.3); GLUCOSE 119 mg/dL (74-106); POTASSIUM - SERUM 3.8 mmol/L (3.5-5.1); PROTEIN - SERUM 5.8 g/dL (6.4-8.2); SODIUM 140 mmol/L (136-145); UREA NITROGEN 17 mg/dL (7-18); eGFR NON AFRICAN AMERICAN > 90 mL/min (90-120)
--- NOTE | 2018-05-31 07:00 | NUR ---
UP IN CHAIR AT BEDSIDE. AWAKES EASILY TO VERBAL STIMULI SKIN WARM AND DRY. RIGHT ARM INCISION INTACT WITHOUT REDNESS OR DRAINAGE. RIGHT LEG INCISIONS DRY AND INTACT NO REDNESS OR DRAINAGE. MID CHEST DRESSING DRY AND INTACT. SUBSTERNAL DRESSING REMOVED. 3 INCISIONS DRY AND INTACT, NO REDNESS OR DRAINAGE. PACER WIRES SECURE TO CHEST. SITES CLEAN WITH BETADINE STERILE 4X4 AND SECURE WITH TEGRADERM. PATEINT TOELRATED WELL. STATES HE SLEPT BETTER IN CHAIR LAST NIGHT THAN IN THE BED.
--- NOTE | 2018-05-31 07:53 | NUR ---
BREAKFAST TRAY SERVED.
--- NOTE | 2018-05-31 10:39 | TEE ---
PATIENT:ANICETO MOON MEDICAL RECORD: [id number] LOCATION:[place] [address] AGE OF PATIENT: 52 ADMISSION DATE: 05/26/18 SEX: M REFERRING PHYSICIAN: INTERPRETING PHYSICIAN: CALI WOODS MD TRANSESOPHAGEAL ECHOCARDIOGRAM Date: 05/26/18 VIVIEN CHARGE Y INDICATIONS: CABG PREMEDICATIONS: PATIENT'S RESPONSE PROCEDURE DOPPLER MEASUREMENTS: LVIT LA PA RA LVOT RVOT Asc. Ao AV Gradient Peak AV Mean AV Area MV Gradient Peak MV Mean MV Area INTERPRETATION: LVd: 4.4 cm LVs: 2.6 cm Doppler: 2-D: COLOR FLOW DOPPLER NORMAL SALINE STUDY: MISCELLANOUS: DIAGNOSIS: PLAN: [email or web address] Application Developer:Tammie Chappell Heat Engineering Teacher: Tammie CARTWRIGHT COMMENTS: DATE OF SERVICE: INTRAOPERATIVE CABG TRANSESOPHAGEAL NOTE Preoperatively, normal LV wall motion and wall thickening. No significant valve pathology. Postoperatively, it shows normal contractility. No focal wall motion abnormality. Normal EF. No significant valve pathology. TRANSINT:[id number] Voice Confirmation ID: [id number] DOCUMENT ID: [id number] TRANSESOPHAGEAL ECHOCARDIOGRAM REPORT [id number] ANICETO MOON at 1039 CC: [id number] DICTATION DATE: 05/28/18 1257 DISPOSAL PLANT OPERATOR: 05/28/18 1354 ADM IN [place] [address] [place] [address]
[2018-05-31] MEDS ORDERED: LOPRESSOR25 MG PO (11:34)
[2018-05-31] MEDS ORDERED: Senokot-S Tablet PO (11:35)
[2018-05-31] MEDS ORDERED: K-DUR20 MEQ PO (11:36)
[2018-05-31] MEDS ORDERED: PERCOCET 5-3251 TAB PO (11:36)
[2018-05-31] MEDS ORDERED: HEMOCYTE PLUS C1 CAP PO (11:38)
[2018-05-31] MEDS ORDERED: LASIX40 MG PO (11:38)
--- NOTE | 2018-05-31 13:30 | NUR ---
1200-DR VELAZQUEZ AT [facility]-PT ASSISTED TO BED-PACER WIRE REMOVED AND PT MADE AWARE STRICT BEDSREST X20MIN 1240-DISCHARGED VIA WHEELCHAIR HOVE WITH
--- NOTE | 2018-06-01 09:23 | MORECARE ---
CASE MANAGEMENT DISCHARGE SUMMARY PATIENT: ANICETO MOON UNIT: [id number] ADM DATE: 05/26/18 AGE: 52 : 67 SEX: M [facility] AUTHOR: MICHAELDOC PHYSICIAN: REFERRING PHYSICIAN: SAURABH VELAZQUEZ MD DATE OF SERVICE: 06/01/18 Discharge Plan Patient Name: ANICETO MOON Facility: [facility]:[place] : 1965 Planned Disposition: Home Anticipated Discharge Date: Discharge Date: 05/31/2018 Expected LOS: Initial Reviewer: [email or web address] Initial Review Date: 05/26/2018 Generated: 06/01/18 10:23 am Comments DCP- Discharge Planning Updated by [email or web address]: Judie Lopez on 05/27/18 1:[address] Patient Name: ANICETO MOON Admission Status: Elective Accout number: [id number] Admission Date: 05-26-2018 : 1965 Admission Diagnosis: Attending: SAURABH VELAZQUEZ Current LOS: 1 Anticipated DC Date: Planned Disposition: Home Primary Insurance: [employer] [facility] Discharge Planning Comments: CM met with patient and spouse at bedside. Patient's Liss is at his bedside and answered CM discharge planning questions. Liss states that patient lives at their home and plans to return there upon discharge. She denies any use of medical equipment or home health services prior to admission. Liss denies any discharge needs at this time. CM will continue to follow and assist as needed with discharge planning / needs. Clinical Data Programmer: Judie Lopez DCPIA - Discharge Planning Initial Assessment Updated by [email or web address]: Judie Lopez on 05/27/18 2:28 pm * Is the patient Alert and Oriented? Yes * How many steps to enter\exit or inside your home? * PCP LEENA * Pharmacy [facility] [address] [facility] * Preadmission Environment Home with Family * ADLs Independent * Equipment None * List name and contact numbers for known caregivers / representatives who currently or will assist patient after discharge: MARYSE WOOTEN - DAUGHTER- [phone] LISS MOON - - [phone] * Verbal permission to speak to the caregivers and representatives has been obtained from the patient. Yes * Community resources currently utilized None * Additional services required to return to the preadmission environment? No * Can the patient safely return to the preadmission environment? Yes * Has this patient been hospitalized within the prior 30 days at any hospital? No Last DP export: 05/27/18 1:41 p Patient Name: ANICETO MOON Page 11813 at 0923 All edits/amendments must be made on the electronic document DICTATION DATE: 06/01/18922 COPIER AND PRINTER FIELD TECHNICIAN: MAK 06/01/18922 RPT#: [id number] DC DATE:05/31/18 STATUS: DIS IN [facility] [address] [place] [address] END OF REPORT
== END 2018-05-31 13:36 | disposition home or self-care (01) | DRG 236 ==
LOC: D.SDCHOLD 13:00 → D.CVICU 05-26 05:00 → D.SDCHOLD 05-26 07:30 → D.CVICU 05-26 09:38 → D.SDCHOLD 05-26 14:00 → D.CVICU 05-31 13:36
PROVIDERS: Internal Medicine Cardiovascular Disease; ADMIT Thoracic Surgery (Cardiothoracic Vascular Surgery); ATTEND Thoracic Surgery (Cardiothoracic Vascular Surgery)
PROC: 021109W Bypass Coronary Artery, Two Arteries from Aorta with Autologous Venous Tissue, Open Approach (ICD-10-PCS; 2018-05-26)
PROC: 05BA0ZZ Excision of Left Brachial Vein, Open Approach (ICD-10-PCS; 2018-05-26)
PROC: 06BP0ZZ Excision of Right Saphenous Vein, Open Approach (ICD-10-PCS; 2018-05-26)
PROC: B24BZZ4 Ultrasonography of Heart with Aorta, Transesophageal (ICD-10-PCS; 2018-05-26)
PROC: 5A1221Z Performance of Cardiac Output, Continuous (ICD-10-PCS; 2018-05-26)
PROC: 02100Z9 Bypass Coronary Artery, One Artery from Left Internal Mammary, Open Approach (ICD-10-PCS; principal; 2018-05-26 07:30)
PROC: 0WCC0ZZ Extirpation of Matter from Mediastinum, Open Approach (ICD-10-PCS; 2018-05-27)
DX: I25.10 Atherosclerotic heart disease of native coronary artery without angina pectoris (principal); I97.631 Postprocedural hematoma of a circulatory system organ or structure following cardiac bypass; D62 Acute posthemorrhagic anemia; I10 Essential (primary) hypertension; G47.30 Sleep apnea, unspecified; E78.5 Hyperlipidemia, unspecified; E11.9 Type 2 diabetes mellitus without complications; M1A.9XX0 Chronic gout, unspecified, without tophus (tophi); R00.0 Tachycardia, unspecified

== ENCOUNTER → 2018-06-26 09:42 | Outpatient (CLI) | payer BC ==
[2018-05-27 12:23] VITALS: BMI 33.3
[~2018-06-26 09:42] MED LIST changes: +BUPROPION XL300 MG PO; +HEMOCYTE PLUS C1 CAP PO; +K-DUR20 MEQ PO; +LASIX40 MG PO; +LOPRESSOR25 MG PO; +PERCOCET 5-3251 TAB PO; +Senokot-S Tablet PO; +XANAX0.25 MG PO
[2018-06-26 10:16] LABS: HEMATOCRIT 36.9 % (42.0-54.0); HEMOGLOBIN 12.4 g/dL (13.5-17.5); MCH 28.8 pg (26.0-34.0); MCHC 33.6 g/dL (31.0-37.0); MCV 85.8 fL (80.0-100.0); MEAN PLATELET VOLUME 10.3 fL (7.4-10.4); RBC 4.3 10x6/uL (4.20-6.10); RDW 13.8 % (11.5-14.5); WBC 6.4 10x3/uL (4.8-10.8)
[2018-06-26 10:33] LABS: ALBUMIN 3.6 g/dL (3.4-5.0); ALKALINE PHOSPHATASE 83 U/L (46-116); ALT (SGPT) 22 U/L (10-68); BILIRUBIN - TOTAL 0.45 mg/dL (0.2-1.3); CALC OSMOLALITY 288 mosm/kg (275-300); CALCIUM 8.6 mg/dL (8.5-10.1); CARBON DIOXIDE 31.5 mmol/L (21.0-32.0); CHLORIDE - SERUM 106 mmol/L (98-107); CREATININE - SERUM 1.1 mg/dL (0.6-1.3); GLUCOSE 100 mg/dL (74-106); POTASSIUM - SERUM 4.4 mmol/L (3.5-5.1); PROTEIN - SERUM 7.1 g/dL (6.4-8.2); SODIUM 144 mmol/L (136-145); UREA NITROGEN 19 mg/dL (7-18); eGFR NON AFRICAN AMERICAN 75 mL/min (90-120)
== END | disposition home or self-care (01) ==
LOC: D.LAB 09:42
PROVIDERS: ATTEND Thoracic Surgery (Cardiothoracic Vascular Surgery)
DX: D64.9 Anemia, unspecified (principal); J90 Pleural effusion, not elsewhere classified